=== PATIENT | male | born 1950 | race Caucasian/White ===

== ENCOUNTER 2017-09-24 11:32 | Emergency (ER) | payer MEDICARE, BC ==
[2017-09-24] MEDS ORDERED: Sodium Chloride 0.9% 10 ML Syringe FLUSH PRN ×2 (11:40→12:01)
[2017-09-24] MEDS ORDERED: Heparin Sodium 5,000 Units/ML Vial IVPUSH ONE (11:42)
[2017-09-24] MEDS ORDERED: Heparin Sodium/D5W 25,000 UNITS/500 ML BAG IV SCH ×2 (11:45→12:15)
[2017-09-24] MEDS ORDERED: Iopamidol 755 Mg/ML 100 ML Bottle IVPUSH ONE (12:01)
--- NOTE | 2017-09-24 12:07 | EDM.PDOC ---
ED HPI GENERAL MEDICAL PROBLEM - General Chief Complaint: Chest Pain Stated Complaint: CHEST PAIN Time Seen by Provider: 09/24/17 11:40 Source of Information: Reports: Patient History Limitations: Reports: No Limitations - History of Present Illness INITIAL COMMENTS - FREE TEXT/NARRATIVE: The patient presents with chest pain and shortness of breath. This all started about 1 month ago. He had a few episodes of chest pain that went away. He then developed some shortness of breath about 2 weeks ago. It was worse with exertion and he stopped walking with his . He developed some chest pain while riding his stationary bike on Saturday. Since then he has had a couple episodes of chest pain with exertion. He saw his doctor Dr Colon and he did an EKG that showed a NSR with some flipped T waves in the inferior leads. Dr Schuyler peter also did a troponin and that was elevated at 0.206. He had the patient take another dose of his aspirin and come to the ER. The patient has a history of a PE a few years ago after an international flight. He was on blood thinners for awhile and he is off of them now. He has edema in the right leg since then. There has been no change with that. He has no fever, chills, cough , congestion, runny nose, abdominal pain, nausea or vomiting. He has no history of [place]. His parents both had MIs. He has HTN and hypercholesterolemia. He quit smoking cigarettes years ago. He smokes an occasional cigar. Onset: Gradual Duration: Day(s): Location: Reports: Chest Quality: Reports: Pressure Severity: Moderate Improves with: Reports: Rest Worsens with: Reports: Movement Context: Reports: Activity (This episode started on Saturday) Treatments PORTFOLIO MANAGER: Reports: Aspirin - Related Data Allergies Allergy/AdvReac Type Severity Reaction Status Date / Time No Known Allergies Allergy Verified 09/24/17 11:48 Home Meds: Home Meds Aspirin [Adult Low Dose Aspirin EC] 81 mg PO DAILY 09/24/17 [History] Losartan [Cozaar] 50 mg PO DAILY 09/24/17 [History] Multivitamin [One Daily Multivitamin] 1 tab PO DAILY 09/24/17 [History] Omeprazole 20 mg PO ASDIRECTED 09/24/17 [History] Timolol [Betimol] 1 drop EYEBOTH DAILY 09/24/17 [History] Vitamin B Complex & Vit C No.4 [Super B Complex] 150 mg PO DAILY 09/24/17 [ History] atorvaSTATin [Lipitor] 40 mg PO DAILY 09/24/17 [History] Past Medical History Cardiovascular History: Reports: High Cholesterol, Hypertension Respiratory History: Reports: None Other Gastrointestinal History: hernia surgery Musculoskeletal History: Reports: None Neurological History: Reports: None Endocrine/Metabolic History: Reports: None Social & Family History - Family History Family Medical History: Noncontributory - Tobacco Use Smoking Status *Q: Former Smoker Used Tobacco, but Quit: Yes Month Tobacco Last Used: 1 ED ROS GENERAL - Review of Systems Review Of Systems: See Below Constitutional: Reports: No Symptoms HEENT: Reports: No Symptoms Respiratory: Reports: Shortness of Breath Cardiovascular: Reports: Chest Pain Endocrine: Reports: No Symptoms GI/Abdominal: Reports: No Symptoms : Reports: No Symptoms Musculoskeletal: Reports: No Symptoms ED EXAM, GENERAL - Physical Exam Exam: See Below Exam Limited By: No Limitations General Appearance: Alert, No Apparent Distress Ears: Normal External Exam Nose: Normal Inspection Head: Atraumatic, Normocephalic Neck: Normal Inspection Respiratory/Chest: No Respiratory Distress, Lungs Clear, Normal Breath Sounds Cardiovascular: Regular Rate, Rhythm, No Edema, No Murmur GI/Abdominal: Soft, Non-Tender, No Organomegaly, No Mass Back Exam: Normal Inspection Extremities: Normal Inspection EKG INTERPRETATION EKG Date: 09/24/17 Time: 12:11 Rhythm: NSR Rate (Beats/Min): 82 [place]: Normal P-Wave: Present QRS: Normal ST-T: Normal QT: Normal Course - Vital Signs Last Recorded V/S: Last Vital Signs Temp 98.5 F 09/24/17 11:46 Pulse 92 09/24/17 11:46 Resp 18 09/24/17 11:46 BP 170/85 H 09/24/17 11:46 Pulse Ox 99 09/24/17 11:46 - Orders/Labs/Meds Orders: Active Orders 24 hr Category Date Time Status Cardiac Monitoring [RC] . DIRECTED Care 09/24/17 11:40 Active EKG Documentation Completion [RC] STAT Care 09/24/17 11:42 Active Oxygen Therapy [RC] PRN Care 09/24/17 11:40 Active Peripheral IV Care [RC] . DIRECTED Care 09/24/17 11:42 Active CBC W/O DIFF,HEMOGRAM [HEME] MOTH@0700 Lab 09/26/17 07:00 Ordered CBC W/O DIFF,HEMOGRAM [HEME] MOTH@0700 Lab 09/30/17 07:00 Ordered CBC W/O DIFF,HEMOGRAM [HEME] MOTH@0700 Lab 10/03/17 07:00 Ordered CBC W/O DIFF,HEMOGRAM [HEME] MOTH@0700 Lab 10/07/17 07:00 Ordered CBC W/O DIFF,HEMOGRAM [HEME] MOTH@0700 Lab 10/10/17 07:00 Ordered CBC W/O DIFF,HEMOGRAM [HEME] MOTH@0700 Lab 10/14/17 07:00 Ordered Heparin Sodium/D5W [Heparin 25,000 Units in D5W 500 ML] Med 09/24/17 12:15 Active 25,000 units in 500 ml IV TITRATE Sodium Chloride 0.9% [Normal Saline] 100 ml Med 09/24/17 12:15 Active IV ASDIRECTED Sodium Chloride 0.9% [Saline Flush] Med 09/24/17 11:40 Active 10 ml FLUSH ASDIRECTED PRN Sodium Chloride 0.9% [Saline Flush] Med 09/24/17 12:01 Active 10 ml FLUSH ONETIME PRN Peripheral IV Insertion Adult [OM.PC] Stat Oth 09/24/17 11:40 Ordered Medication Orders Sodium Chloride (Normal Saline) 100 mls @ 80 mls/hr IV ASDIRECTED RIKY Last Admin: 09/24/17 12:05 Dose: 80 mls/hr Heparin Sodium/Dextrose (Heparin 25,000 Units In D5w 500 Ml) 25,000 units in 500 mls @ 19.14 mls/hr IV TITRATE RIKY; 10 UNITS/KG/HR PRN Reason: Protocol Last Admin: 09/24/17 12:29 Dose: 19.14 mls/hr Sodium Chloride (Saline Flush) 10 ml FLUSH ASDIRECTED PRN PRN Reason: Keep Vein Open Last Admin: 09/24/17 11:53 Dose: 10 ml Sodium Chloride (Saline Flush) 10 ml FLUSH ONETIME PRN PRN Reason: IV FLUSH Last Admin: 09/24/17 12:05 Dose: 10 ml Labs: Laboratory Tests 09/24/17 09/24/17 09/24/17 Range/Units 11:45 11:45 11:45 WBC 10.66 H (4.23-9.07) K/mm3 RBC 5.08 (4.63-6.08) M/mm3 Hgb 15.6 (13.7-17.5) gm/L Hct 46.2 (40.1-51.0) % MCV 90.9 (79.0-92.2) fl MCH 30.7 (25.7-32.2) pg MCHC 33.8 (32.2-35.5) g/dl RDW Std Deviation 45.4 H (35.1-43.9) fL Plt Count 239 (163-337) K/mm3 MPV 10.8 (9.4-12.3) fl Neut % (Auto) 62.1 (34.0-67.9) % Lymph % (Auto) 26.2 (21.8-53.1) % [place] % (Auto) 9.8 (5.3-12.2) % Eos % (Auto) 1.1 (0.8-7.0) Baso % (Auto) 0.6 (0.1-1.2) % Neut # (Auto) 6.62 H (1.78-5.38) K/mm3 Lymph # (Auto) 2.79 (1.32-3.57) K/mm3 [place] # (Auto) 1.05 H (0.30-0.82) K/mm3 Eos # (Auto) 0.12 (0.04-0.54) K/mm3 Baso # (Auto) 0.06 (0.01-0.08) K/mm3 D-Dimer, Quantitative 0.43 (0.19-0.59) mg/L Troponin I 0.172 H* (0.00-0.056) ng/mL Meds: Medications Generic Name Dose Route Start Last Admin Trade Name Freq PRN Reason Stop Dose Admin Sodium Chloride 100 mls @ 80 mls/hr 09/24/17 12:15 09/24/17 12:05 Normal Saline IV 80 mls/hr ASDIRECTED RIKY Administration Heparin Sodium/Dextrose 25,000 units in 500 mls @ 19.14 mls/hr 09/24/17 12:15 09/24/17 12:29 Heparin 25,000 Units In D5w 500 Ml IV 19.14 mls/hr TITRATE RIKY Administration Protocol 10 UNITS/KG/HR Sodium Chloride 10 ml 09/24/17 11:40 09/24/17 11:53 Saline Flush FLUSH 10 ml ASDIRECTED PRN Administration Keep Vein Open Sodium Chloride 10 ml 09/24/17 12:01 09/24/17 12:05 Saline Flush FLUSH 10 ml ONETIME PRN Administration IV FLUSH Discontinued Medications Generic Name Dose Route Start Last Admin Trade Name [place] PRN Reason Stop Dose Admin Heparin Sodium (Porcine) 5,000 units 09/24/17 11:42 09/24/17 11:53 Heparin Sodium IVPUSH 09/24/17 11:43 5,000 units ONETIME ONE Administration Heparin Sodium/Dextrose 25,000 units in 500 mls @ 0 mls/hr 09/24/17 11:45 Heparin 25,000 Units In D5w 500 Ml IV TITRATE RIKY Protocol 10 UNITS/KG/HR Heparin Sodium/Dextrose Confirm 09/24/17 12:23 09/24/17 12:33 Heparin 25,000 Units In D5w 500 Ml Administered 09/24/17 12:24 Not Given Dose 500 mls @ as directed .ROUTE .STK-MED ONE Iopamidol 100 ml 09/24/17 12:01 09/24/17 12:04 Isovue-370 (76%) IVPUSH 09/24/17 12:02 65 ml ONETIME ONE Administration - Re-Assessments/Exams Free Text/Narrative Re-Assessment/Exam: 09/24/17 12:08 I ordered an IV saline lock. He took a double dose of aspirin. I also ordered a CT of his chest to look for CT. I did a repeat EKG and it shows a flipped T- wave in the inferior leads. There is no change from the EKG done at Dr Colon' s office. I will do a repeat troponin. 09/24/17 13:[address] showed no findings of PE. Moderately prominent coronary artery calcification. He has no chest pain now. His troponin has decreased slightly to 0.172. I feel he had a nonSTEMI possibly on Saturday. I feel he needs to go to [place] to see cardiology. I called [facility] in [place] and talked with the hospitalist Dr Hoovestol and he accepted the patient. He did recommend a beta tala. I gave him metoprolol 50mg by mouth. Departure - Departure Time of Disposition: 13:20 Disposition: DC/Tfer to Acute Hospital 02 Reason for Transfer *Q: Other Condition: Serious Clinical Impression: Non-STEMI (non-ST elevated myocardial infarction) Referrals: Ezequiel Mccauley MD [Primary Care Provider] - Forms: ED Department Discharge - My Orders Last 24 Hours: My Active Orders 09/24/17 11:40 Cardiac Monitoring [RC] . DIRECTED Oxygen Therapy [RC] PRN Sodium Chloride 0.9% [Saline Flush] 10 ml FLUSH ASDIRECTED PRN Peripheral IV Insertion Adult [OM.PC] Stat 09/24/17 11:42 EKG Documentation Completion [RC] STAT Peripheral IV Care [RC] . DIRECTED 09/24/17 12:01 Sodium Chloride 0.9% [Saline Flush] 10 ml FLUSH ONETIME PRN 09/24/17 12:15 Heparin Sodium/D5W [Heparin 25,000 Units in D5W 500 ML] 25,000 units in 500 ml IV TITRATE Sodium Chloride 0.9% [Normal Saline] 100 ml IV ASDIRECTED 09/26/17 07:00 CBC W/O DIFF,HEMOGRAM [HEME] MOTH@0700 09/30/17 07:00 CBC W/O DIFF,HEMOGRAM [HEME] MOTH@0700 10/03/17 07:00 CBC W/O DIFF,HEMOGRAM [HEME] MOTH@0700 10/07/17 07:00 CBC W/O DIFF,HEMOGRAM [HEME] MOTH@0700 10/10/17 07:00 CBC W/O DIFF,HEMOGRAM [HEME] MOTH@0700 10/14/17 07:00 CBC W/O DIFF,HEMOGRAM [HEME] MOTH@0700 - Assessment/Plan Last 24 Hours: My Active Orders 09/24/17 11:40 Cardiac Monitoring [RC] . DIRECTED Oxygen Therapy [RC] PRN Sodium Chloride 0.9% [Saline Flush] 10 ml FLUSH ASDIRECTED PRN Peripheral IV Insertion Adult [OM.PC] Stat 09/24/17 11:42 EKG Documentation Completion [RC] STAT Peripheral IV Care [RC] . DIRECTED 09/24/17 12:01 Sodium Chloride 0.9% [Saline Flush] 10 ml FLUSH ONETIME PRN 09/24/17 12:15 Heparin Sodium/D5W [Heparin 25,000 Units in D5W 500 ML] 25,000 units in 500 ml IV TITRATE Sodium Chloride 0.9% [Normal Saline] 100 ml IV ASDIRECTED 09/26/17 07:00 CBC W/O DIFF,HEMOGRAM [HEME] MOTH@69909/30/17 07:00 CBC W/O DIFF,HEMOGRAM [HEME] MOTH@69910/03/17 07:00 CBC W/O DIFF,HEMOGRAM [HEME] MOTH@69910/07/17 07:00 CBC W/O DIFF,HEMOGRAM [HEME] MOTH@69910/10/17 07:00 CBC W/O DIFF,HEMOGRAM [HEME] MOTH@69910/14/17 07:00 CBC W/O DIFF,HEMOGRAM [HEME] MOTH@699
[2017-09-24] MEDS ORDERED: Sodium Chloride 0.9% 100 ML IV SCH (12:15)
[2017-09-24] MEDS ORDERED: Heparin Sodium/D5W 500 ML ONE (12:23)
--- NOTE | 2017-09-24 13:05 | CT ---
CT chest Technique: Multiple axial sections through the chest were obtained. Intravenous contrast was utilized. Study has been performed as a pulmonary angiogram protocol. Comparison: No previous chest imaging. Findings: Pulmonary arteries are well-opacified. No filling defects are seen to indicate pulmonary embolism. Moderately severe coronary artery calcification is seen. Mild atherosclerotic calcifications seen within the thoracic aorta. Mediastinum and hilar regions show no adenopathy or mass. Small portion of the visualized upper abdominal structures appear within normal limits. Slight linear densities noted within the right middle lobe and right lung base compatible with combination of atelectasis and scarring. Lungs otherwise are clear. Bone window settings were reviewed which show scattered degenerative spurring throughout the spine. Impression: 1. No findings of pulmonary embolism. 2. Moderately prominent coronary artery calcification. 3. Other incidental findings as described above. Diagnostic code #3
[2017-09-24] MEDS ORDERED: Metoprolol Tartrate 50 MG Tab PO ONE (13:15)
== END 2017-09-24 14:27 ==
LOC: JD.ED 11:32
DX: I21.4 Non-ST elevation (NSTEMI) myocardial infarction (principal); I10 Essential (primary) hypertension; Z79.82 Long term (current) use of aspirin; Z79.899 Other long term (current) drug therapy; Z87.891 Personal history of nicotine dependence
CPT/HCPCS: 36415; 71275; 84484; 85025; 85379; 93005; 96365; 96366; 96376; 99285; A9270; J1644; J7030; J7050; Q9967; 93010

== ENCOUNTER 2017-10-16 17:16 | Emergency (ER) | payer MEDICARE, BC ==
--- NOTE | 2017-10-16 18:43 | EDM.PDOC ---
ED HPI GENERAL MEDICAL PROBLEM - General Chief Complaint: Fever Stated Complaint: FEVER (BYPASS SURGERY 2 WKS AGO) Time Seen by Provider: 10/16/17 17:25 Source of Information: Reports: Patient, Family () History Limitations: Reports: No Limitations - History of Present Illness INITIAL COMMENTS - FREE TEXT/NARRATIVE: Medical records indicate that the patient was seen in this emergency department by Dr. Ruth on 09/24/2017 for exertional chest pain for one month and dyspnea for 2 weeks. He was found to have a mildly elevated troponin, diagnosed with a non-STEMI, and transferred to [facility]. He states that he underwent a four-vessel bypass on 10/01/[address] Luciano. The masood were removed by Dr. Hayward yesterday, 10/15/2017. The patient's states that the patient has had chills on and off ever since his bypass. He developed a dry cough yesterday. Today she noticed that his face looked red. She checked his temperature with an oral mercury thermometer and found it to be elevated at 101.6. Here in the ED, the patient's temperature is found to be 99.3. The patient denies URI symptoms, such as nasal congestion or drainage. No recent nausea, vomiting, constipation, diarrhea, or urinary symptoms. - Related Data Allergies Allergy/AdvReac Type Severity Reaction Status Date / Time No Known Allergies Allergy Verified 09/24/17 11:48 Home Meds: Home Meds Aspirin [Adult Low Dose Aspirin EC] 81 mg PO DAILY 09/24/17 [History] Multivitamin [One Daily Multivitamin] 1 tab PO DAILY 09/24/17 [History] Omeprazole 20 mg PO ASDIRECTED 09/24/17 [History] Timolol [Betimol] 1 drop EYEBOTH DAILY 09/24/17 [History] Vitamin B Complex & Vit C No.4 [Super B Complex] 150 mg PO DAILY 09/24/17 [ History] atorvaSTATin [Lipitor] 40 mg PO DAILY 09/24/17 [History] Clopidogrel [Plavix] 75 mg PO DAILY 10/16/17 [History] Diltiazem HCl [Diltiazem 24Hr Cd] 240 mg PO DAILY 10/16/17 [History] Levofloxacin [Levaquin] 1 tab PO QPM #4 tablet 10/16/17 [Rx] Metoprolol Tartrate 25 mg PO BID 10/16/17 [History] Past Medical History HEENT History: Reports: Impaired Vision Cardiovascular History: Reports: Blood Clots/VTE/DVT, Bypass, High Cholesterol, Hypertension Respiratory History: Reports: PE Gastrointestinal History: Reports: GERD, Other (See Below) Other Gastrointestinal History: hernia surgery Musculoskeletal History: Reports: None Neurological History: Reports: None Endocrine/Metabolic History: Reports: None - Past Surgical History HEENT Surgical History: Reports: None GI Surgical History: Reports: Hernia, Inguinal Social & Family History - Family History Family Medical History: Noncontributory - Tobacco Use Smoking Status *Q: Never Smoker Used Tobacco, but Quit: Yes Month Tobacco Last Used: 1 Second Hand Smoke Exposure: No - Caffeine Use Caffeine Use: Reports: Coffee - Recreational Drug Use Recreational Drug Use: No ED ROS GENERAL - Review of Systems Review Of Systems: ROS reveals no pertinent complaints other than HPI. ED EXAM, GENERAL - Physical Exam Exam: See Below Exam Limited By: No Limitations General Appearance: Alert, WD/WN, No Apparent Distress Eye Exam: Bilateral Eye: Normal Inspection Ears: Normal External Exam, Hearing Grossly Normal Nose: Normal Inspection, No Blood Throat/Mouth: Normal Inspection, Normal Lips, Normal Voice, No Airway Compromise Head: Atraumatic, Normocephalic Neck: Normal Inspection, Full Range of Motion Respiratory/Chest: No Respiratory Distress, No Accessory Muscle Use, Crackles ( Bibasilar only.), Other (Sternotomy wound appears to be clean, dry, and intact, without suggestion of an infection). No: Wheezing, Prolonged Expiration Cardiovascular: Normal Peripheral Pulses, Regular Rate, Rhythm, No Gallop, No JVD, No Murmur, No Rub Peripheral Pulses: 4+: Radial (L), Radial (R) GI/Abdominal: Normal Bowel Sounds, Soft, Non-Tender, No Organomegaly, No Distention, No Abnormal Bruit, No Mass (Male) Exam: Deferred Rectal (Males) Exam: Deferred Back Exam: Normal Inspection, Full Range of Motion, NT Extremities: Normal Inspection, Normal Range of Motion, Normal Capillary Refill , Other (BLE compression stockings on) Neurological: Alert, Oriented, Normal Cognition, No Motor/Sensory Deficits Psychiatric: Normal Affect Skin Exam: Warm, Dry, Intact, Normal Color, No Rash Course - Vital Signs Last Recorded V/S: Last Vital Signs Temp 37.7 C 10/16/17 18:54 Pulse 81 10/16/17 17:26 Resp 18 10/16/17 17:26 BP 138/63 10/16/17 17:26 Pulse Ox 96 10/16/17 17:26 - Orders/Labs/Meds Orders: Active Orders 24 hr Category Date Time Status Incentive Spirometry [RT Incentive Spirometry] [RC] Care 10/16/17 18:37 Active ASDIRECTED Chest 2V [CR] Stat Exams 10/16/17 17:52 Taken CULTURE BLOOD [BC] Stat Lab 10/16/17 18:10 Received CULTURE BLOOD [BC] Stat Lab 10/16/17 18:20 Received Blood Culture x2 Reflex Set [OM.PC] Stat Oth 10/16/17 17:52 Ordered Labs: Laboratory Tests 10/16/17 10/16/17 Range/Units 18:10 18:10 WBC 15.19 H (4.23-9.07) K/mm3 RBC 3.30 L (4.63-6.08) M/mm3 Hgb 9.7 L (13.7-17.5) gm/L Hct 30.5 L (40.1-51.0) % MCV 92.4 H (79.0-92.2) fl MCH 29.4 (25.7-32.2) pg MCHC 31.8 L (32.2-35.5) g/dl RDW Std Deviation 45.8 H (35.1-43.9) fL Plt Count 502 H (163-337) K/mm3 MPV 9.1 L (9.4-12.3) fl Neutrophils % (Manual) 73 H (40-60) % Band Neutrophils % 0 (0-10) % Lymphocytes % (Manual) 13 L (20-40) % Atypical Lymphs % 1 % Monocytes % (Manual) 13 H (2-10) % Eosinophils % (Manual) 0 L (0.8-7.0) % Basophils % (Manual) 0 L (0.2-1.2) Platelet Estimate Increased Plt Morphology Comment Normal Poikilocytosis 1+ slight Anisocytosis 1+ slight Microcytosis 1+ slight Macrocytosis 1+ slight RBC Morph Comment Abnormal Sodium 137 (136-145) mEq/L Potassium 3.7 (3.5-5.1) mEq/L Chloride 102 (98-107) mEq/L Carbon Dioxide 24 (21-32) mEq/L Anion Gap 14.7 (5-15) BUN 16 (7-18) mg/dL Creatinine 1.0 (0.7-1.3) mg/dL Est Cr Clr Drug Dosing 74.01 mL/min Estimated GFR (MDRD) > 60 (>60) mL/min BUN/Creatinine Ratio 16.0 (14-18) Glucose 110 (80-115) mg/dL Calcium 9.1 (8.5-10.1) mg/dL Total Bilirubin 0.6 (0.2-1.0) mg/dL AST 22 (15-37) U/L ALT 35 (16-63) U/L Alkaline Phosphatase 82 (46-116) U/L Total Protein 7.0 (6.4-8.2) g/dl Albumin 2.8 L (3.4-5.0) g/dl Globulin 4.2 gm/dL Albumin/Globulin Ratio 0.7 L (1-2) - Re-Assessments/Exams Free Text/Narrative Re-Assessment/Exam: 10/16/17 18:01 Two-view chest radiograph reviewed. Poor inspiratory effort. Cardiac silhouette is within normal limits. No pulmonary vascular congestion. Small bilateral pleural effusions. Infiltrate versus atelectasis at the right base. No pneumothorax. The right hemidiaphragm appears to be elevated. Sternotomy wires noted. Formal read per the Radiologist pending. 10/16/17 19:14 I asked the respiratory therapist to bring an incentive spirometer to the patient, and I watched him use it. For the most part, he uses the incentive spirometer properly, although he does inhale a bit too hard in an effort to bring the main bubble up. I explained that he wants to keep the small bubble between air O's as long as possible. He was able to do this quite well, as well. 10/16/17 19:29 Test results discussed with the patient and his . While the patient has 0% bandemia, he does have an elevated WBC count of 15.19 and an infiltrate versus atelectasis at the right base. I believe it would be prudent to treat the patient with a five-day course of Levaquin. As he is oxygenating well, I do not see an indication for admission to the hospital. Departure - Departure Time of Disposition: 19:30 Disposition: Home, Self-Care 01 Condition: Good Clinical Impression: Fever, Cough - Discharge Information Referrals: Ezequiel Mccauley MD [Primary Care Provider] - Forms: ED Department Discharge Additional Instructions: You were seen in the emergency room for chills, cough, and a fever. Workup in the ER included blood work, 2 blood cultures, an influenza swab, and a chest x-ray. For the most part, your workup was unremarkable. You have a mildly elevated white blood cell count, but no "left shift" suggesting a bacterial infection. Your chest x-ray shows either some collapsed lung at the right base, versus an infiltrate that could mean pneumonia. To be on the safe side, you have been started on the antibiotic Levaquin. Take one tablet each evening, starting tomorrow, , 10/17/2017. Finish the entire prescription unless told otherwise by Dr. Hayward. Continue to use your incentive spirometer as instructed. We recommend that you follow-up with Dr. Hayward this week. If any other problems, please do not hesitate to return to the ER. - My Orders Last 24 Hours: My Active Orders 10/16/17 17:52 Chest 2V [CR] Stat Blood Culture x2 Reflex Set [OM.PC] Stat 10/16/17 18:10 CULTURE BLOOD [BC] Stat 10/16/17 18:20 CULTURE BLOOD [BC] Stat 10/16/17 18:37 Incentive Spirometry [RT Incentive Spirometry] [RC] ASDIRECTED - Assessment/Plan Last 24 Hours: My Active Orders 10/16/17 17:52 Chest 2V [CR] Stat Blood Culture x2 Reflex Set [OM.PC] Stat 10/16/17 18:10 CULTURE BLOOD [BC] Stat 10/16/17 18:20 CULTURE BLOOD [BC] Stat 10/16/17 18:37 Incentive Spirometry [RT Incentive Spirometry] [RC] ASDIRECTED
[2017-10-16] MEDS ORDERED: Levofloxacin 750 MG Tab PO STA (19:34)
--- NOTE | 2017-10-17 12:28 | CR ---
Chest: Two views of the chest were obtained. Comparison: No prior chest x-ray, previous chest CT dated 09/24/17 is available. Heart size is normal. Mild tortuosity of the thoracic aorta is seen. Right hemidiaphragm is elevated. Pleural thickening is seen posteriorly and laterally within the costophrenic angle which is believed to be chronic. No acute parenchymal densities are appreciated. Sternotomy is noted for CABG. Degenerative spurring is noted within the spine. Impression: 1. Findings within the right base which are felt to be chronic. Previous sternotomy is noted. 2. Nothing acute is appreciated on two-view chest x-ray. Diagnostic code #2 MTDD
== END 2017-10-16 19:49 | disposition home or self-care (01) ==
LOC: JD.ED 17:16
DX: R50.9 Fever, unspecified (principal); R05 Cough; E78.00 Pure hypercholesterolemia, unspecified; I10 Essential (primary) hypertension; Z79.899 Other long term (current) drug therapy; Z79.82 Long term (current) use of aspirin
CPT/HCPCS: 36415; 71020; 80053; 85025; 87040; 87804; 99284; A9270; 99283

== ENCOUNTER 2020-10-09 08:14 | Inpatient (IN) | payer MEDICARE, BC ==
--- NOTE | 2020-10-09 08:48 | EDM.PDOC ---
ED HPI GENERAL MEDICAL PROBLEM - General Chief Complaint: Lower Extremity Injury/Pain Stated Complaint: RT HIP INJURY Time Seen by Provider: 10/09/20 08:25 Source of Information: Reports: Patient History Limitations: Reports: No Limitations - History of Present Illness INITIAL COMMENTS - FREE TEXT/NARRATIVE: The patient presents with left hip pain. The patient was walking into [employer] and he slipped on some ice and fell and landed on his left hip on a curb. He did not hit his head or hurt his neck. He has no LOC. He has no chest pain or abdominal pain. When he is just sitting or laying down he has very little pain. If he puts weight on his hip, he has 6/10 pain. Onset: Sudden Duration: Hour(s): Location: Reports: Lower Extremity, Left (hip) Quality: Reports: Sharp Severity: Moderate Improves with: Reports: Immobilization Worsens with: Reports: Movement Context: Reports: Trauma (Slipped and fell and landed on a curb) Associated Symptoms: Reports: No Other Symptoms Left Hip Pain Score (Numeric/FACES): 6 - Related Data Allergies Allergy/AdvReac Type Severity Reaction Status Date / Time No Known Allergies Allergy Verified 12/27/17 09:10 Home Meds: Home Meds Aspirin [Adult Low Dose Aspirin EC] 81 mg PO DAILY 09/24/17 [History] Multivitamin [One Daily Multivitamin] 1 tab PO DAILY 09/24/17 [History] Omeprazole 20 mg PO ASDIRECTED 09/24/17 [History] Timolol [Betimol] 1 drop EYEBOTH DAILY 09/24/17 [History] Vitamin B Complex Vit C No.4 [Super B Complex] 150 mg PO DAILY 09/24/17 [History] atorvaSTATin [Lipitor] 40 mg PO DAILY 09/24/17 [History] Clopidogrel [Plavix] 75 mg PO DAILY 10/16/17 [History] Diltiazem HCl [Diltiazem 24Hr Cd] 240 mg PO DAILY 10/16/17 [History] Metoprolol Tartrate 25 mg PO BID 10/16/17 [History] Past Medical History HEENT History: Reports: Impaired Vision Cardiovascular History: Reports: Blood Clots/VTE/DVT, Bypass, High Cholesterol, Hypertension Respiratory History: Reports: PE Gastrointestinal History: Reports: GERD, Other (See Below) Other Gastrointestinal History: hernia surgery Musculoskeletal History: Reports: None Neurological History: Reports: None Endocrine/Metabolic History: Reports: None - Past Surgical History HEENT Surgical History: Reports: None GI Surgical History: Reports: Hernia, Inguinal Social & Family History - Family History Family Medical History: No Pertinent Family History - Caffeine Use Caffeine Use: Reports: Coffee Review of Systems - Review of Systems Review Of Systems: See Below Constitutional: Reports: No Symptoms Eyes: Reports: No Symptoms Ears: Reports: No Symptoms Nose: Reports: No Symptoms Mouth/Throat: Reports: No Symptoms Respiratory: Reports: No Symptoms Cardiovascular: Reports: No Symptoms GI/Abdominal: Reports: No Symptoms Genitourinary: Reports: No Symptoms Musculoskeletal: Reports: Other (Left hip pain) ED EXAM, GENERAL - Physical Exam Exam: See Below Exam Limited By: No Limitations General Appearance: Alert, No Apparent Distress Ears: Normal External Exam Nose: Normal Inspection Head: Atraumatic, Normocephalic Neck: Normal Inspection, Supple, Non-Tender Respiratory/Chest: No Respiratory Distress, Lungs Clear, Normal Breath Sounds Cardiovascular: Regular Rate, Rhythm, No Edema, No Murmur GI/Abdominal: Soft, Non-Tender, No Organomegaly, No Mass Back Exam: Normal Inspection Extremities: Other (Mild pain upon palpation to the left hip. Good sensation and pulses distally.) Course - Vital Signs Last Recorded V/S: Last Vital Signs Temp 97.9 F 10/09/20 08:24 Pulse 63 10/09/20 08:24 Resp 18 10/09/20 08:24 BP 166/80 H 10/09/20 08:24 Pulse Ox 100 10/09/20 08:24 - Orders/Labs/Meds Orders: Active Orders 24 hr Category Date Time Status Cardiac Monitoring [RC] . DIRECTED Care 10/09/20 09:26 Active EKG Documentation Completion [RC] STAT Care 10/09/20 09:26 Active Peripheral IV Care [RC] . DIRECTED Care 10/09/20 09:27 Active CBC WITH AUTO DIFF [HEME] Stat Lab 10/09/20 09:40 Results COMPREHENSIVE METABOLIC PN,CMP [CHEM] Stat Lab 10/09/20 09:40 Received CORONAVIRUS COVID-19 OG [MOLEC] Stat Lab 10/09/20 09:36 Received INR,PT,PROTHROMBIN TIME [COAG] Stat Lab 10/09/20 09:40 Received PTT,PARTIAL THROMBOPLSTIN TIME [COAG] Stat Lab 10/09/20 09:40 Received TROPONIN I [CHEM] Stat Lab 10/09/20 09:40 Received Sodium Chloride 0.9% [Saline Flush] Med 10/09/20 09:26 Active 10 ml FLUSH ASDIRECTED PRN Peripheral IV Insertion Adult [OM.PC] Stat Oth 10/09/20 09:26 Ordered Medication Orders Sodium Chloride (Saline Flush) 10 ml FLUSH ASDIRECTED PRN PRN Reason: Keep Vein Open Last Admin: 10/09/20 09:51 Dose: 10 ml Documented by: SANTOS Labs: Laboratory Tests 10/09/20 Range/Units 09:40 WBC 12.12 H (4.23-9.07) K/mm3 RBC 5.14 (4.63-6.08) M/mm3 Hgb 15.5 (13.7-17.5) gm/dl Hct 47.6 (40.1-51.0) % MCV 92.6 H (79.0-92.2) fl MCH 30.2 (25.7-32.2) pg MCHC 32.6 (32.2-35.5) g/dl RDW Std Deviation 45.6 H (35.1-43.9) fL Plt Count 240 (163-337) K/mm3 MPV 10.8 (9.4-12.3) fl Neut % (Auto) 74.5 H (34.0-67.9) % Lymph % (Auto) 14.8 L (21.8-53.1) % [place] % (Auto) 8.5 (5.3-12.2) % Eos % (Auto) 1.7 (0.8-7.0) Baso % (Auto) 0.3 (0.1-1.2) % Neut # (Auto) 9.03 H (1.78-5.38) K/mm3 Lymph # (Auto) 1.79 (1.32-3.57) K/mm3 [place] # (Auto) 1.03 H (0.30-0.82) K/mm3 Eos # (Auto) 0.21 (0.04-0.54) K/mm3 Baso # (Auto) 0.04 (0.01-0.08) K/mm3 Meds: Medications Generic Name Dose Route Start Last Admin Trade Name Clarkq PRN Reason Stop Dose Admin Sodium Chloride 10 ml 10/09/20 09:26 10/09/20 09:51 Saline Flush FLUSH 10 ml ASDIRECTED PRN Administration Keep Vein Open - Re-Assessments/Exams Free Text/Narrative Re-Assessment/Exam: 10/09/20 08:47 I ordered an x-ray of his left hip and pelvis. 10/09/20 10:06 The x-ray shows a left subcapital fracture that is mildly displaced. I ordered an EKG that shows nothing acute. I also ordered labs. I called Dr Son and Dr Abreu and Dr Abreu agreed to the admission with Dr Son on consult. Departure - Departure Time of Disposition: 10:10 Disposition: Admitted As Inpatient 66 Condition: Fair Clinical Impression: Fall Qualifiers: Encounter type: initial encounter Qualified Code(s): W19.XXXA - Unspecified fall, initial encounter Closed left hip fracture Qualifiers: Encounter type: initial encounter Qualified Code(s): S72.002A - Fracture of unspecified part of neck of left femur, initial encounter for closed fracture - Discharge Information Referrals: Ezequiel Abreu MD [Primary Care Provider] - Forms: ED Department Discharge Sepsis Event Note (ED) - Evaluation Sepsis Screening Result: No Definite Risk - Focused Exam Vital Signs: Vital Signs Temp Pulse Resp BP Pulse Ox 10/09/20 08:24 97.9 F 63 18 166/80 H 100 - My Orders Last 24 Hours: My Active Orders 10/09/20 09:26 Cardiac Monitoring [RC] . DIRECTED EKG Documentation Completion [RC] STAT Sodium Chloride 0.9% [Saline Flush] 10 ml FLUSH ASDIRECTED PRN Peripheral IV Insertion Adult [OM.PC] Stat 10/09/20 09:27 Peripheral IV Care [RC] . DIRECTED 10/09/20 09:36 CORONAVIRUS COVID-19 OG [MOLEC] Stat 10/09/20 09:40 CBC WITH AUTO DIFF [HEME] Stat COMPREHENSIVE METABOLIC PN,CMP [CHEM] Stat INR,PT,PROTHROMBIN TIME [COAG] Stat PTT,PARTIAL THROMBOPLSTIN TIME [COAG] Stat TROPONIN I [CHEM] Stat - Assessment/Plan Last 24 Hours: My Active Orders 10/09/20 09:26 Cardiac Monitoring [RC] . DIRECTED EKG Documentation Completion [RC] STAT Sodium Chloride 0.9% [Saline Flush] 10 ml FLUSH ASDIRECTED PRN Peripheral IV Insertion Adult [OM.PC] Stat 10/09/20 09:27 Peripheral IV Care [RC] . DIRECTED 10/09/20 09:36 CORONAVIRUS COVID-19 GO [MOLEC] Stat 10/09/20 09:40 CBC WITH AUTO DIFF [HEME] Stat COMPREHENSIVE METABOLIC PN,CMP [CHEM] Stat INR,PT,PROTHROMBIN TIME [COAG] Stat PTT,PARTIAL THROMBOPLSTIN TIME [COAG] Stat TROPONIN I [CHEM] Stat
--- NOTE | 2020-10-09 09:25 | CR ---
Pelvis and left hip: AP view of the pelvis was obtained as well as AP and crosstable lateral views of the left hip. Subcapital fracture is noted within the left hip. Minimal displacement is seen. Mild joint space narrowing is noted within both hips. Sacroiliac joints appear within normal limits. Slight vascular calcification is noted. Surgical clips are seen with the right groin. Impression: 1. Minimally displaced subcapital fracture of the left hip. 2. Other findings believed to be incidental as described above. Diagnostic code #3
[2020-10-09] MEDS ORDERED: Sodium Chloride 0.9% 10 ML Syringe FLUSH PRN (09:26)
[2020-10-09] MEDS ORDERED: Docusate Sodium 100 MG Cap PO PRN (12:01)
[2020-10-09] MEDS ORDERED: Ondansetron 4 MG/2 ML SDV IV PRN (12:01)
--- NOTE | 2020-10-09 12:09 | PCM.HP.2 ---
H&P History of Present Illness - General Date of Service: 10/09/20 Admit Problem/Dx: Admission Diagnosis/Problem Admission Diagnosis/Problem Hip fracture requiring operative repair Source of Information: Patient, Provider, RN, RN Notes Reviewed History Limitations: Reports: No Limitations - History of Present Illness Initial Comments - Free Text/Narative: This is a 70-year-old male who presented to ED on 10/09/2020 after a fall resulting in left hip pain. Patient reports he was walking [place] [employer] and slipped on the ice and fell, landing on his left hip. Denies any head neck or back pain and reports he did not hit his head. No loss of consciousness. Denies any chest or abdominal pain. Reports minimal pain while sitting or lying down but 6 out of 10 pain while weightbearing. In the ED temp is 97.9. Pulse 63. Blood pressure 166/80. Respirations 18. Pulse ox 100% on room air. Twelve-lead EKG is obtained showing a sinus rhythm at 66 bpm. 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 No acute changes or signs of ischemia. Labs are obtained. WBC is elevated at 12.12, which is likely due to stress reaction. Hemoglobin is 15.5. Hematocrit 47.6. Platelets are good at 240,000. Neutrophils are elevated at 74.5%. INR 0.93. Sodium 137. Potassium 3.8. Chloride 101. Carbon oxide 27. Anion gap 12.8. BUN is 17. Creatinine 1.2. GFR is 60. Glucose 110. Calcium 9.6. Bilirubin 0.4. AST is 24, ALT 32, alkaline phosphatase 78. Troponin is less than 0.017. Protein is high at 8.3. Albumin 4.1. SARS-CoV-2 RNA is negative. Hip x-rays obtained showing a minimally displaced subcapital fracture of the left hip and other incidental findings. Orthopedic surgeon, Dr. Son, is consulted through the ED. Patient is on Plavix and will likely require surgery on Saturday, which gives this time to wear off. He carries a history of DVT, PE, coronary bypass, GERD, HLD, hypertension. He reports prior constipation with opioids. His PCP is Dr. Hayward. His bulb assembler is Dr. Callahan. He is a full code. He is subsequently mid to the medical floor for planned surgical fixation of his left hip fracture. Left Hip Pain Score (Numeric/FACES): 6 - Related Data Allergies/Adverse Reactions: Allergies Allergy/AdvReac Type Severity Reaction Status Date / Time codeine AdvReac Other Verified 10/09/20 11:29 Home Medications: Home Meds Aspirin [Adult Low Dose Aspirin EC] 81 mg PO DAILY 09/24/17 [History] Multivitamin [One Daily Multivitamin] 1 tab PO DAILY 09/24/17 [History] Omeprazole 20 mg PO ASDIRECTED 09/24/17 [History] Vitamin B Complex Vit C No.4 [Super B Complex] 150 mg PO DAILY 09/24/17 [History] atorvaSTATin [Lipitor] 40 mg PO DAILY 09/24/17 [History] Clopidogrel [Plavix] 75 mg PO DAILY 10/16/17 [History] Diltiazem HCl [Diltiazem 24Hr Cd] 240 mg PO DAILY 10/16/17 [History] Metoprolol Tartrate 25 mg PO BID 10/16/17 [History] Acetaminophen [Tylenol Extra Strength] 500 mg PO BID 10/09/20 [History] Brimonidine Tartrate/Timolol [Combigan Eye Drops] 1 drop OP BID 10/09/20 [History] Past Medical History HEENT History: Reports: Impaired Vision Other HEENT History: wear glasses Cardiovascular History: Reports: Blood Clots/VTE/DVT, Bypass, High Cholesterol, Hypertension Respiratory History: Reports: PE, Other (See Below) Other Respiratory History: DVT in leg that traveled to lungs. Gastrointestinal History: Reports: GERD, Other (See Below) Other Gastrointestinal History: hernia surgery x2 Musculoskeletal History: Reports: None Neurological History: Reports: None Endocrine/Metabolic History: Reports: None - Infectious Disease History Infectious Disease History: Reports: Chicken Pox, Measles - Past Surgical History HEENT Surgical History: Reports: None Cardiovascular Surgical History: Reports: Coronary Artery Bypass GI Surgical History: Reports: Hernia, Inguinal Social & Family History - Family History Family Medical History: No Pertinent Family History - Tobacco Use Tobacco Use Status *Q: Former Tobacco User Used Tobacco, but Quit: Yes Month/Year Tobacco Last Used: 1994 - Caffeine Use Caffeine Use: Reports: Coffee, Soda - Recreational Drug Use Recreational Drug Use: No H&P Review of Systems - Review of Systems: Review Of Systems: See Below General: Reports: No Symptoms. Denies: Fever, Chills, Malaise, Weakness, Fatigue HEENT: Reports: No Symptoms. Denies: Headaches, Sore Throat Pulmonary: Reports: No Symptoms. Denies: Shortness of Breath, Wheezing, Pleuritic Chest Pain, Cough, Hemoptysis Cardiovascular: Reports: No Symptoms. Denies: Chest Pain, Palpitations, Dyspnea on Exertion, Edema Gastrointestinal: Reports: No Symptoms. Denies: Abdominal Pain, Constipation, Diarrhea, Nausea, Vomiting Genitourinary: Reports: No Symptoms. Denies: Pain Musculoskeletal: Reports: Joint Pain (left hip) Skin: Reports: No Symptoms. Denies: Cyanosis Psychiatric: Reports: No Symptoms. Denies: Confusion Neurological: Reports: Difficulty Walking, Gait Disturbance. Denies: Confusion, Headache, Numbness, Pre-Existing Deficit, Tingling, Weakness Hematologic/Lymphatic: Reports: No Symptoms Immunologic: Reports: No Symptoms Exam - Exam Exam: See Below - Vital Signs Vital Signs: Last Vital Signs Temp 97.9 F 10/09/20 08:24 Pulse 63 10/09/20 08:24 Resp 18 10/09/20 08:24 BP 166/80 H 10/09/20 08:24 Pulse Ox 100 10/09/20 08:24 Weight: 209 lb 1.6 oz - Exam Quality Assessment: DVT Prophylaxis. No: Supplemental Oxygen General: Alert, Oriented, Cooperative. No: Mild Distress HEENT: Conjunctiva Clear, EACs Clear, Mucosa Moist & [place] Neck: Supple, Trachea Midline Lungs: Clear to Auscultation, Normal Respiratory Effort Cardiovascular: Regular Rate, Regular Rhythm GI/Abdominal Exam: Normal Bowel Sounds, Soft, Non-Tender, No Distention (Male) Exam: Deferred Rectal (Males) Exam: Deferred Back Exam: Normal Inspection, Full Range of Motion Extremities: Normal Inspection, No Pedal Edema, Normal Capillary Refill, Leg Pain (Left hip ), Limited Range of Motion (2/2 pain ) Peripheral Pulses: 2+: Dorsalis Pedis (L), Dorsalis Pedis (R), 3+: Radial (L), Radial (R) Skin: Warm, Dry, Intact Neurological: Cranial Nerves Intact (Grossly ) Neuro Extensive - Mental Status: Alert, Oriented x3, Normal Mood/Affect - Patient Data Lab Results Last 24 hrs: Laboratory Results - last 24 hr 10/09/20 10/09/20 10/09/20 Range/Units 09:36 09:40 09:40 WBC 12.12 H (4.23-9.07) K/mm3 RBC 5.14 (4.63-6.08) M/mm3 Hgb 15.5 (13.7-17.5) gm/dl Hct 47.6 (40.1-51.0) % MCV 92.6 H (79.0-92.2) fl MCH 30.2 (25.7-32.2) pg MCHC 32.6 (32.2-35.5) g/dl RDW Std Deviation 45.6 H (35.1-43.9) fL Plt Count 240 (163-337) K/mm3 MPV 10.8 (9.4-12.3) fl Neut % (Auto) 74.5 H (34.0-67.9) % Lymph % (Auto) 14.8 L (21.8-53.1) % [place] % (Auto) 8.5 (5.3-12.2) % Eos % (Auto) 1.7 (0.8-7.0) Baso % (Auto) 0.3 (0.1-1.2) % Neut # (Auto) 9.03 H (1.78-5.38) K/mm3 Lymph # (Auto) 1.79 (1.32-3.57) K/mm3 [place] # (Auto) 1.03 H (0.30-0.82) K/mm3 Eos # (Auto) 0.21 (0.04-0.54) K/mm3 Baso # (Auto) 0.04 (0.01-0.08) K/mm3 Manual Slide Review Normal smear PT 10.0 (9.7-12.0) SECONDS INR 0.93 APTT 22.2 (21.7-31.4) SECONDS Sodium (136-145) mEq/L Potassium (3.5-5.1) mEq/L Chloride (98-107) mEq/L Carbon Dioxide (21-32) mEq/L Anion Gap (5-15) BUN (7-18) mg/dL Creatinine (0.7-1.3) mg/dL Est Cr Clr Drug Dosing mL/min Estimated GFR (MDRD) (>60) mL/min BUN/Creatinine Ratio (14-18) Glucose (80-115) mg/dL Calcium (8.5-10.1) mg/dL Total Bilirubin (0.2-1.0) mg/dL AST (15-37) U/L ALT (16-63) U/L Alkaline Phosphatase (46-116) U/L Troponin I (0.00-0.056) ng/mL Total Protein (6.4-8.2) g/dl Albumin (3.4-5.0) g/dl Globulin gm/dL Albumin/Globulin Ratio (1-2) SARS-CoV-2 RNA (OG) Negative (NEGATIVE) 10/09/20 Range/Units 09:40 WBC (4.23-9.07) K/mm3 RBC (4.63-6.08) M/mm3 Hgb (13.7-17.5) gm/dl Hct (40.1-51.0) % MCV (79.0-92.2) fl MCH (25.7-32.2) pg MCHC (32.2-35.5) g/dl RDW Std Deviation (35.1-43.9) fL Plt Count (163-337) K/mm3 MPV (9.4-12.3) fl Neut % (Auto) (34.0-67.9) % Lymph % (Auto) (21.8-53.1) % [place] % (Auto) (5.3-12.2) % Eos % (Auto) (0.8-7.0) Baso % (Auto) (0.1-1.2) % Neut # (Auto) (1.78-5.38) K/mm3 Lymph # (Auto) (1.32-3.57) K/mm3 [place] # (Auto) (0.30-0.82) K/mm3 Eos # (Auto) (0.04-0.54) K/mm3 Baso # (Auto) (0.01-0.08) K/mm3 Manual Slide Review PT (9.7-12.0) SECONDS INR APTT (21.7-31.4) SECONDS Sodium 137 (136-145) mEq/L Potassium 3.8 (3.5-5.1) mEq/L Chloride 101 (98-107) mEq/L Carbon Dioxide 27 (21-32) mEq/L Anion Gap 12.8 (5-15) BUN 17 (7-18) mg/dL Creatinine 1.2 (0.7-1.3) mg/dL Est Cr Clr Drug Dosing 59.14 mL/min Estimated GFR (MDRD) 60 (>60) mL/min BUN/Creatinine Ratio 14.2 (14-18) Glucose 110 (80-115) mg/dL Calcium 9.6 (8.5-10.1) mg/dL Total Bilirubin 0.4 (0.2-1.0) mg/dL AST 24 (15-37) U/L ALT 32 (16-63) U/L Alkaline Phosphatase 78 (46-116) U/L Troponin I < 0.017 (0.00-0.056) ng/mL Total Protein 8.3 H (6.4-8.2) g/dl Albumin 4.1 (3.4-5.0) g/dl Globulin 4.2 gm/dL Albumin/Globulin Ratio 1.0 (1-2) SARS-CoV-2 RNA (OG) (NEGATIVE) Result Diagrams: 10/09/20 09:40 10/09/20 09:40 Sepsis Event Note - Evaluation Sepsis Screening Result: No Definite Risk - Focused Exam Vital Signs: Vital Signs Temp Pulse Resp BP Pulse Ox 10/09/20 08:24 97.9 F 63 18 166/80 H 100 - Problem List (1) Closed left hip fracture SNOMED Code(s): 077280824 ICD Code: S72.002A - FRACTURE OF UNSP PART OF NECK OF LEFT FEMUR, INIT Status: Acute Priority: High Current Visit: Yes Qualifiers: Encounter type: initial encounter Qualified Code(s): S72.002A - Fracture of unspecified part of neck of left femur, initial encounter for closed fracture (2) Fall SNOMED Code(s): 8190417, 298319301 ICD Code: W19.XXXA - UNSPECIFIED FALL, INITIAL ENCOUNTER Status: Acute Priority: High Current Visit: Yes Qualifiers: Encounter type: initial encounter Qualified Code(s): W19.XXXA - Unspecified fall, initial encounter (3) Chronic anticoagulation SNOMED Code(s): 491482479 ICD Code: Z79.01 - HOME SPECIALIST (CURRENT) USE OF ANTICOAGULANTS Status: Chronic Priority: Medium Current Visit: Yes (4) History of heart bypass surgery SNOMED Code(s): 765599272 ICD Code: Z95.1 - PRESENCE OF AORTOCORONARY BYPASS GRAFT Status: Chronic Priority: Medium Current Visit: No (5) History of pulmonary embolism SNOMED Code(s): 288736118 ICD Code: Z86.711 - PERSONAL HISTORY OF PULMONARY EMBOLISM Status: Chronic Priority: Medium Current Visit: No (6) HTN (hypertension) SNOMED Code(s): 68191648 ICD Code: I10 - ESSENTIAL (PRIMARY) HYPERTENSION Status: Chronic Prio rity: Medium Current Visit: No Qualifiers: Hypertension type: unspecified Qualified Code(s): I10 - Essential (primary) hypertension (7) HLD (hyperlipidemia) SNOMED Code(s): 34615940 ICD Code: E78.5 - HYPERLIPIDEMIA, UNSPECIFIED Status: Chronic Priority: Low Current Visit: No Qualifiers: Hyperlipidemia type: unspecified Qualified Code(s): E78.5 - Hyperlipidemia, unspecified (8) GERD (gastroesophageal reflux disease) SNOMED Code(s): 050495958 ICD Code: K21.9 - GASTRO-ESOPHAGEAL REFLUX DISEASE WITHOUT ESOPHAGITIS Status: Chronic Priority: Low Current Visit: No Qualifiers: Esophagitis presence: esophagitis presence not specified Qualified Code(s): K21.9 - Gastro-esophageal reflux disease without esophagitis (9) History of DVT of lower extremity SNOMED Code(s): 940439008 ICD Code: Z86.718 - PERSONAL HISTORY OF OTHER VENOUS THROMBOSIS AND EMBOLISM Status: Acute Priority: High Current Visit: Yes Problem List Initiated/Reviewed/Updated: Yes Orders Last 24hrs: Active Orders 24 hr Category Date Time Status Admission Status [Patient Status] [ADT] Routine ADT 10/09/20 10:24 Active Cardiac Monitoring [RC] . DIRECTED Care 10/09/20 09:26 Active Sodium Chloride 0.9% [Saline Flush] Med 10/09/20 09:26 Active 10 ml FLUSH ASDIRECTED PRN Peripheral IV Insertion Adult [OM.PC] Stat Oth 10/09/20 09:26 Ordered Medication Orders Sodium Chloride (Saline Flush) 10 ml FLUSH ASDIRECTED PRN PRN Reason: Keep Vein Open Last Admin: 10/09/20 09:51 Dose: 10 ml Documented by: SANTOS Assessment/Plan Comment:: Assessment - Day of Admission - 10/09/2020: * 70yo male who slipped on the ice and fell landing on left hip resulting in hip fracture * Denies hitting head. Denies head, neck, back, chest, abdominal pain. Denies LOC. * Labs in ED grossly unremarkable * 12-lead EKG in ED shows sinus rhythm at 66 BPM with old anterior infarct * CXR obtained on floor shows nothing acute * History of DVT, PE, HLD, HTN, CABG, GERD, and reports constipation with opiates * Left hip X-ray shows minimally displaced subcaptial fracture to left hip * Patient reports pain controlled when lying down or sitting - painful when weightbearing * NSQIP risk calculator - grossly below average risk overall * COVID-19 screen negative Plan: Closed left hip fracture Fall Chronic anticoagulation History of heart bypass surgery History of pulmonary embolism History of DVT * Consult surgery - Dr. Son for surgical fixation * Hold plavix * PT/OT * IS * Type and screen * Daily labs * Consult CM/SW for discharge planning * Lovenox/SCDs for VTE prevention * Bedrest bedside commode * Tylenol for fever pain * [place] for more sever pain * Schedule Colace due to history of constipation with opiates HTN (hypertension) HLD (hyperlipidemia) GERD (gastroesophageal reflux disease) * Home medications as ordered PCP: Dr. Hayward Code status: Full Code DVT prophylaxis: Lovenox/SCDs GI prophylaxis: Home PPI Social: Patient lives independently at home with who is a former nurse Disposition: Patient admitted to [facility] for planned surgical fixation of left hip fracture. Will require delay in planning of surgery due to home Plavix. Anticipate LOS of 4-5 days. Prognosis: Good - Mortality Measure Prognosis:: Good
--- NOTE | 2020-10-09 12:33 | CR ---
Chest: Portable view of the chest was obtained. Comparison: Previous chest x-ray of 10/16/17. Heart size and mediastinum are within normal limits for portable technique. There is slight scarring seen within the right mid to lower lung. Lungs otherwise are clear. Prior sternotomy is noted. Bony structures are grossly intact for the patient's age. Impression: 1. Findings as noted above. 2. Nothing acute is appreciated. Diagnostic code #2
[2020-10-09] MEDS: Acetaminophen/HYDROcodone 325-5 MG Tab PO PRN ×2 (13:09→21:00)
[2020-10-09] MEDS: Acetaminophen 325 MG Tab PO PRN (16:46)
[2020-10-09] MEDS: Timolol Maleate 0.5% Ophth Soln 5 ML Bottle EYEBOTH SCH (20:59)
[2020-10-09] MEDS ORDERED: Brimonidine 0.2% Ophth Soln 15 ML Bottle EYEBOTH SCH (21:00)
[2020-10-09] MEDS: Metoprolol Tartrate 25 MG Tab PO SCH (21:00)
[2020-10-09] MEDS: Docusate Sodium 100 MG Cap PO SCH (21:00)
[2020-10-10] MEDS: Acetaminophen/HYDROcodone 325-5 MG Tab PO PRN ×5 (00:51→19:19)
[2020-10-10] MEDS ORDERED: Potassium Chloride 20 MEQ Tab.ER PO ONE (07:35)
[2020-10-10] MEDS ORDERED: Enoxaparin 40 MG/0.4 ML Syringe SUBCUT SCH (09:00)
[2020-10-10] MEDS: Multivitamins,Therapeutic Tab PO SCH (09:43)
[2020-10-10] MEDS: Rosuvastatin 10 MG Tab PO SCH (09:43)
[2020-10-10] MEDS: Metoprolol Tartrate 25 MG Tab PO SCH ×2 (09:44→20:34)
[2020-10-10] MEDS: Docusate Sodium 100 MG Cap PO SCH ×2 (09:44→20:34)
[2020-10-10] MEDS: Diltiazem 240 MG Cap.ER PO SCH (09:44)
[2020-10-10] MEDS: Timolol Maleate 0.5% Ophth Soln 5 ML Bottle EYEBOTH SCH ×2 (09:45→20:31)
[2020-10-10] MEDS: Brimonidine 0.2% Ophth Soln 5 ML Bottle EYEBOTH SCH ×2 (09:45→20:33)
--- NOTE | 2020-10-10 12:04 | PCM.PN ---
- General Info Date of Service: 10/10/20 Admission Dx/Problem (Free Text): Admission Diagnosis/Problem Admission Diagnosis/Problem Hip fracture requiring operative repair Subjective Update: Patient reports doing okay. He states he does have some discomfort to his right hip, however he is requesting pain medications every 4 hours. I have also encouraged him to increase his p.o. intake and the need for stool softener. Patient awaiting surgery on Saturday. Functional Status: Reports: Pain Controlled, Tolerating Diet, Urinating (urinal), Incentive Spirometry. Denies: Ambulating - Review of Systems General: Reports: No Symptoms HEENT: Reports: No Symptoms Pulmonary: Reports: No Symptoms Cardiovascular: Reports: No Symptoms Gastrointestinal: Reports: No Symptoms Genitourinary: Reports: No Symptoms Musculoskeletal: Reports: Other (left hip pain) Skin: Reports: No Symptoms Neurological: Reports: No Symptoms Psychiatric: Reports: No Symptoms - Patient Data Vitals - Most Recent: Last Vital Signs Temp 98.2 F 10/10/20 11:27 Pulse 61 10/10/20 11:27 Resp 18 10/10/20 11:27 BP 131/70 10/10/20 11:27 Pulse Ox 93 L 10/10/20 11:27 Weight - Most Recent: 206 lb 14.4 oz I&O - Last 24 Hours: Intake & Output 10/09/20 10/10/20 10/10/20 22:59 06:59 14:59 Intake Total 75 650 Output Total 350 Balance 75 300 Lab Results Last 24 Hours: Laboratory Results - last 24 hr 10/09/20 10/10/20 10/10/20 Range/Units 09:40 06:23 06:23 WBC 13.22 H (4.23-9.07) K/mm3 RBC 4.57 L (4.63-6.08) M/mm3 Hgb 14.1 (13.7-17.5) gm/dl Hct 42.2 (40.1-51.0) % MCV 92.3 H (79.0-92.2) fl MCH 30.9 (25.7-32.2) pg MCHC 33.4 (32.2-35.5) g/dl RDW Std Deviation 45.7 H (35.1-43.9) fL Plt Count 196 (163-337) K/mm3 MPV 10.7 (9.4-12.3) fl Neut % (Auto) 72.4 H (34.0-67.9) % Lymph % (Auto) 12.9 L (21.8-53.1) % [place] % (Auto) 11.0 (5.3-12.2) % Eos % (Auto) 3.3 (0.8-7.0) Baso % (Auto) 0.3 (0.1-1.2) % Neut # (Auto) 9.57 H (1.78-5.38) K/mm3 Lymph # (Auto) 1.71 (1.32-3.57) K/mm3 [place] # (Auto) 1.46 H (0.30-0.82) K/mm3 Eos # (Auto) 0.43 (0.04-0.54) K/mm3 Baso # (Auto) 0.04 (0.01-0.08) K/mm3 Sodium 137 (136-145) mEq/L Potassium 3.4 L (3.5-5.1) mEq/L Chloride 101 (98-107) mEq/L Carbon Dioxide 24 (21-32) mEq/L Anion Gap 15.4 H (5-15) BUN 19 H (7-18) mg/dL Creatinine 1.1 (0.7-1.3) mg/dL Est Cr Clr Drug Dosing 64.52 mL/min Estimated GFR (MDRD) > 60 (>60) mL/min BUN/Creatinine Ratio 17.3 (14-18) Glucose 129 H (80-115) mg/dL Calcium 9.0 (8.5-10.1) mg/dL Magnesium 2.1 (1.8-2.4) mg/dl Total Bilirubin 0.5 (0.2-1.0) mg/dL AST 21 (15-37) U/L ALT 25 (16-63) U/L Alkaline Phosphatase 56 (46-116) U/L Total Protein 6.9 (6.4-8.2) g/dl Albumin 3.2 L (3.4-5.0) g/dl Globulin 3.7 gm/dL Albumin/Globulin Ratio 0.9 L (1-2) Blood Type B POSITIVE Gel Antibody Screen Negative Med Orders - Current: Current Medications Acetaminophen (Tylenol) 650 mg PO Q4H PRN PRN Reason: Pain (Mild 1-3)/fever Last Admin: 10/09/20 16:46 Dose: 650 mg Documented by: Hydrocodone Bitart/Acetaminophen ([place] 325-5 Mg) 1 tab PO Q4H PRN PRN Reason: Pain (moderate 4-6) Last Admin: 10/10/20 09:43 Dose: 1 tab Documented by: Brimonidine Tartrate ([place]phagan 0.2% Ophth Soln) 0 ml EYEBOTH BID [facility] Last Admin: 10/10/20 09:45 Dose: 1 drop Documented by: Diltiazem HCl (Dilacor Xr) 240 mg PO DAILY [facility] Last Admin: 10/10/20 09:44 Dose: 240 mg Documented by: Docusate Sodium (Colace) 100 mg PO BID [facility] Last Admin: 10/10/20 09:44 Dose: 100 mg Documented by: Enoxaparin Sodium (Lovenox) 40 mg SUBCUT DAILY [facility] Last Admin: 10/10/20 09:43 Dose: 40 mg Documented by: Metoprolol Tartrate (Lopressor) 25 mg PO BID [facility] Last Admin: 10/10/20 09:44 Dose: 25 mg Documented by: Multivitamins (Thera) 1 each PO DAILY [facility] Last Admin: 10/10/20 09:43 Dose: 1 each Documented by: Ondansetron HCl (Zofran) 4 mg IV Q6H PRN PRN Reason: Nausea/Vomiting Pantoprazole Sodium (Protonix) 40 mg PO TuThSa@0900 [facility] Rosuvastatin Calcium (Crestor) 10 mg PO DAILY [facility] Last Admin: 10/10/20 09:43 Dose: 10 mg Documented by: Sodium Chloride (Saline Flush) 10 ml FLUSH ASDIRECTED PRN PRN Reason: Keep Vein Open Last Admin: 10/09/20 09:51 Dose: 10 ml Documented by: Timolol Maleate (Timoptic 0.5% Ophth Soln) 0 ml EYEBOTH BID [facility] Last Admin: 10/10/20 09:45 Dose: 1 drop Documented by: Discontinued Medications Brimonidine Tartrate (Brimonidine Tartrate 0.2% Ophth Soln) 0 ml EYEBOTH BID [facility] Last Admin: 10/09/20 22:47 Dose: Not Given Documented by: Docusate Sodium (Colace) 100 mg PO BID PRN PRN Reason: Constipation Potassium Chloride (Klor-Con M20) 40 meq PO ONETIME ONE Stop: 10/10/20 07:36 Last Admin: 10/10/20 09:44 Dose: 40 meq Documented by: - Exam Quality Assessment: DVT Prophylaxis (lovenox). No: Supplemental Oxygen General: Alert, Oriented, Cooperative, No Acute Distress HEENT: Pupils Equal, Pupils Reactive, Mucous Membr. Moist/[place] Neck: Supple, Trachea Midline. No: Lymphadenopathy Lungs: Clear to Auscultation, Normal Respiratory Effort Cardiovascular: Regular Rate, Regular Rhythm, No Murmurs GI/Abdominal Exam: Normal Bowel Sounds, Soft, Non-Tender, No Distention (Male) Exam: Deferred Back Exam: Normal Inspection, Full Range of Motion Extremities: Normal Inspection, Normal Range of Motion, Non-Tender, No Pedal Edema, Normal Capillary Refill, Limited Range of Motion (left lower extremity due to fracture) Peripheral Pulses: 2+: Radial (L), Radial (R) Skin: Warm, Dry, Intact Neurological: No New Focal Deficit Psy/Mental Status: Alert, Normal Affect, Normal Mood Sepsis Event Note - Evaluation Sepsis Screening Result: No Definite Risk - Focused Exam Vital Signs: Vital Signs Temp Pulse Resp BP Pulse Ox 10/10/20 11:27 98.2 F 61 18 131/70 93 L 10/10/20 09:44 72 149/95 H 10/10/20 09:40 72 149/95 H 98 10/10/20 07:21 98.2 F 66 18 137/83 93 L 10/10/20 05:34 99.1 F 73 16 120/69 95 10/10/20 00:51 98.1 F 64 16 134/75 92 L - Problem List & Annotations (1) Closed left hip fracture SNOMED Code(s): 716602683 Code(s): S72.002A - FRACTURE OF UNSP PART OF NECK OF LEFT FEMUR, INIT Status: Acute Priority: High Current Visit: Yes Qualifiers: Encounter type: initial encounter Qualified Code(s): S72.002A - Fracture of unspecified part of neck of left femur, initial encounter for closed fracture (2) Fall SNOMED Code(s): 8480642, 074444246 Code(s): W19.XXXA - UNSPECIFIED FALL, INITIAL ENCOUNTER Status: Acute Priority: High Current Visit: Yes Qualifiers: Encounter type: initial encounter Qualified Code(s): W19.XXXA - Unspecified fall, initial encounter (3) History of DVT of lower extremity SNOMED Code(s): 064734144 Code(s): Z86.718 - PERSONAL HISTORY OF OTHER VENOUS THROMBOSIS AND EMBOLISM Status: Acute Priority: High Current Visit: Yes (4) Chronic anticoagulation SNOMED Code(s): 502522522 Code(s): Z79.01 - [employer] (CURRENT) USE OF ANTICOAGULANTS Status: Chronic Priority: Medium Current Visit: Yes (5) GERD (gastroesophageal reflux disease) SNOMED Code(s): 171854086 Code(s): K21.9 - GASTRO-ESOPHAGEAL REFLUX DISEASE WITHOUT ESOPHAGITIS Status: Chronic Priority: Low Current Visit: No Qualifiers: Esophagitis presence: esophagitis presence not specified Qualified Code(s): K21.9 - Gastro-esophageal reflux disease without esophagitis (6) HLD (hyperlipidemia) SNOMED Code(s): 53888954 Code(s): E78.5 - HYPERLIPIDEMIA, UNSPECIFIED Status: Chronic Priority: Low Current Visit: No Qualifiers: Hyperlipidemia type: unspecified Qualified Code(s): E78.5 - Hyperlipidemia, unspecified (7) HTN (hypertension) SNOMED Code(s): 16212494 Code(s): I10 - ESSENTIAL (PRIMARY) HYPERTENSION Status: Chronic Priority: Medium Current Visit: No Qualifiers: Hypertension type: unspecified Qualified Code(s): I10 - Essential (primary) hypertension (8) History of heart bypass surgery SNOMED Code(s): 125527268 Code(s): Z95.1 - PRESENCE OF AORTOCORONARY BYPASS GRAFT Status: Chronic Priority: Medium Current Visit: No (9) History of pulmonary embolism SNOMED Code(s): 396790426 Code(s): Z86.711 - PERSONAL HISTORY OF PULMONARY EMBOLISM Status: Chronic Priority: Medium Current Visit: No - Problem List Review Problem List Initiated/Reviewed/Updated: Yes - Assessment Assessment:: 10/10/20 * continue to hold plavix until after surgical repair of left hip * Tylenol and norco for pain control * K+ 3.4 * VSS and patient has been afebrile * awaiting surgery on Saturday - Plan Plan:: Assessment - Day of Admission - 10/09/2020: * 70yo male who slipped on the ice and fell landing on left hip resulting in hip fracture * Denies hitting head. Denies head, neck, back, chest, abdominal pain. Denies LOC. * Labs in ED grossly unremarkable * 12-lead EKG in ED shows sinus rhythm at 66 BPM with old anterior infarct * CXR obtained on floor shows nothing acute * History of DVT, PE, HLD, HTN, CABG, GERD, and reports constipation with opiates * Left hip X-ray shows minimally displaced subcaptial fracture to left hip * Patient reports pain controlled when lying down or sitting - painful when weightbearing * NSQIP risk calculator - grossly below average risk overall * COVID-19 screen negative Plan: Closed left hip fracture Fall Chronic anticoagulation History of heart bypass surgery History of pulmonary embolism History of DVT * Repair of left hip fx is scheduled on Saturday * Hold plavix * PT/OT * IS * Type and screen * Daily labs * Consult CM/SW for discharge planning * Lovenox/SCDs for VTE prevention * Bedrest bedside commode * Tylenol for fever pain * [place] for more sever pain * Schedule Colace due to history of constipation with opiates HTN (hypertension) HLD (hyperlipidemia) GERD (gastroesophageal reflux disease) * Home medications as ordered Supplement with potassium 40meq po today. PCP: Dr. Hayward Code status: Full Code DVT prophylaxis: Lovenox/SCDs GI prophylaxis: Home PPI Social: Patient lives independently at home with who is a former nurse Disposition: Patient admitted to [facility] for planned surgical fixation of left hip fracture. Will require delay in planning of surgery due to home Plavix. Anticipate LOS of 4-5 days. Prognosis: Good
--- NOTE | 2020-10-10 15:06 | PCM.PREANE ---
Preanesthetic Assessment - Procedure Proposed Procedure: Left Total Hip Arthroplasty - Anesthesia/Transfusion/Family Hx Anesthesia History: Prior Anesthesia Without Reaction Family History of Anesthesia Reaction: No Transfusion History: No Prior Transfusion(s) - Review of Systems General: No Symptoms Pulmonary: No Symptoms (Former Smoker, 1994 last use. Current Cigar use. ) Cardiovascular: No Symptoms, Other (CABG 2016 4 vessel bypass, no issues since this time. Follows with cardiology regularly. ) Gastrointestinal: Other (GERD) Neurological: Difficulty Walking (Fractured hip) Other: Reports: Easy Bleeding, Easy Bruising (On Plavix last dose 10/09/20.) - Physical Assessment NPO Status Date: 10/11/20 NPO Status Time: 00:01 Vital Signs: Last Vital Signs Temp 36.8 C 10/10/20 11:27 Pulse 61 10/10/20 11:27 Resp 18 10/10/20 11:27 BP 131/70 10/10/20 11:27 Pulse Ox 93 L 10/10/20 13:55 Height: 1.78 m Weight: 93.848 kg ASA Class: 3 Mental Status: Alert & Oriented x3 Airway Class: Mallampati = 2 Dentition: Reports: Missing Tooth/Teeth, Caries Thyro-Mental Finger Breadths: 3 Mouth Opening Finger Breadths: 3 ROM/Head Extension: Full Lungs: Clear to Auscultation, Normal Respiratory Effort, Decreased Breath Sounds Cardiovascular: Regular Rate, Regular Rhythm - Lab Values: Laboratory Last Values WBC 13.22 K/mm3 (4.23-9.07) H 10/10/20 06:23 RBC 4.57 M/mm3 (4.63-6.08) L 10/10/20 06:23 Hgb 14.1 gm/dl (13.7-17.5) 10/10/20 06:23 Hct 42.2 % (40.1-51.0) 10/10/20 06:23 MCV 92.3 fl (79.0-92.2) H 10/10/20 06:23 MCH 30.9 pg (25.7-32.2) 10/10/20 06:23 MCHC 33.4 g/dl (32.2-35.5) 10/10/20 06:23 RDW Std Deviation 45.7 fL (35.1-43.9) H 10/10/20 06:23 Plt Count 196 K/mm3 (163-337) 10/10/20 06:23 MPV 10.7 fl (9.4-12.3) 10/10/20 06:23 Neut % (Auto) 72.4 % (34.0-67.9) H 10/10/20 06:23 Lymph % (Auto) 12.9 % (21.8-53.1) L 10/10/20 06:23 [place] % (Auto) 11.0 % (5.3-12.2) 10/10/20 06:23 Eos % (Auto) 3.3 (0.8-7.0) 10/10/20 06:23 Baso % (Auto) 0.3 % (0.1-1.2) 10/10/20 06:23 Neut # (Auto) 9.57 K/mm3 (1.78-5.38) H 10/10/20 06:23 Lymph # (Auto) 1.71 K/mm3 (1.32-3.57) 10/10/20 06:23 [place] # (Auto) 1.46 K/mm3 (0.30-0.82) H 10/10/20 06:23 Eos # (Auto) 0.43 K/mm3 (0.04-0.54) 10/10/20 06:23 Baso # (Auto) 0.04 K/mm3 (0.01-0.08) 10/10/20 06:23 Manual Slide Review Normal smear 10/09/20 09:40 PT 10.0 SECONDS (9.7-12.0) 10/09/20 09:40 INR 0.93 10/09/20 09:40 APTT 22.2 SECONDS (21.7-31.4) 10/09/20 09:40 Sodium 137 mEq/L (136-145) 10/10/20 06:23 Potassium 3.4 mEq/L (3.5-5.1) L 10/10/20 06:23 Chloride 101 mEq/L (98-107) 10/10/20 06:23 Carbon Dioxide 24 mEq/L (21-32) 10/10/20 06:23 Anion Gap 15.4 (5-15) H 10/10/20 06:23 BUN 19 mg/dL (7-18) H 10/10/20 06:23 Creatinine 1.1 mg/dL (0.7-1.3) 10/10/20 06:23 Est Cr Clr Drug Dosing 64.52 mL/min 10/10/20 06:23 Estimated GFR (MDRD) > 60 mL/min (>60) 10/10/20 06:23 BUN/Creatinine Ratio 17.3 (14-18) 10/10/20 06:23 Glucose 129 mg/dL (80-115) H 10/10/20 06:23 Calcium 9.0 mg/dL (8.5-10.1) 10/10/20 06:23 Magnesium 2.1 mg/dl (1.8-2.4) 10/10/20 06:23 Total Bilirubin 0.5 mg/dL (0.2-1.0) 10/10/20 06:23 AST 21 U/L (15-37) 10/10/20 06:23 ALT 25 U/L (16-63) 10/10/20 06:23 Alkaline Phosphatase 56 U/L (46-116) 10/10/20 06:23 Troponin I < 0.017 ng/mL (0.00-0.056) 10/09/20 09:40 Total Protein 6.9 g/dl (6.4-8.2) 10/10/20 06:23 Albumin 3.2 g/dl (3.4-5.0) L 10/10/20 06:23 Globulin 3.7 gm/dL 10/10/20 06:23 Albumin/Globulin Ratio 0.9 (1-2) L 10/10/20 06:23 SARS-CoV-2 RNA (OG) Negative (NEGATIVE) 10/09/20 09:36 MRSA (PCR) Negative 10/10/20 11:45 Blood Type B POSITIVE 10/09/20 09:40 Gel Antibody Screen Negative 10/09/20 09:40 - Imaging/EKG Impressions: SR at 66 bpm, old anterior infarct. - Allergies Allergies/Adverse Reactions: Allergies Allergy/AdvReac Type Severity Reaction Status Date / Time codeine AdvReac Other Verified 10/09/20 11:29 - Blood Blood Available: Yes Product(s) Available: PRBC (type and screen done) - Anesthesia Plan Pre-Op Medication Ordered: Other (Albuterol Nebulizer Treatment. ) Beta Nara: Metoprolol Med Last Dose Date: 10/11/20 Med Last Dose Time: 08:28 - Acknowledgements Anesthesia Type Planned: General Anesthesia (Due to plavix use. ) Pt an Appropriate Candidate for the Planned Anesthesia: Yes Alternatives and Risks of Anesthesia Discussed w Pt/Guardian: Yes Pt/Guardian Understands and Agrees with Anesthesia Plan: Yes PreAnesthesia Questionnaire HEENT History: Reports: Impaired Vision Other HEENT History: wear glasses Cardiovascular History: Reports: Blood Clots/VTE/DVT, Bypass, High Cholesterol, Hypertension Respiratory History: Reports: PE, Other (See Below) Other Respiratory History: DVT in leg that traveled to lungs. Gastrointestinal History: Reports: GERD, Other (See Below) Other Gastrointestinal History: hernia surgery x2 Musculoskeletal History: Reports: None Neurological History: Reports: None Endocrine/Metabolic History: Reports: None - Infectious Disease History Infectious Disease History: Reports: Chicken Pox, Measles - Past Surgical History HEENT Surgical History: Reports: None Cardiovascular Surgical History: Reports: Coronary Artery Bypass GI Surgical History: Reports: Hernia, Inguinal - SUBSTANCE USE Tobacco Use Status *Q: Former Tobacco User Recreational Drug Use History: No - HOME MEDS Home Medications: Home Meds Aspirin [Adult Low Dose Aspirin EC] 81 mg PO DAILY 09/24/17 [History] Multivitamin [One Daily Multivitamin] 1 tab PO DAILY 09/24/17 [History] Omeprazole 20 mg PO ASDIRECTED 09/24/17 [History] Vitamin B Complex Vit C No.4 [Super B Complex] 150 mg PO DAILY 09/24/17 [History] atorvaSTATin [Lipitor] 40 mg PO DAILY 09/24/17 [History] Clopidogrel [Plavix] 75 mg PO DAILY 10/16/17 [History] Diltiazem HCl [Diltiazem 24Hr Cd] 240 mg PO DAILY 10/16/17 [History] Metoprolol Tartrate 25 mg PO BID 10/16/17 [History] Acetaminophen [Tylenol Extra Strength] 500 mg PO BID 10/09/20 [History] Brimonidine Tartrate/Timolol [[place] Eye Drops] 1 drop OP BID 10/09/20 [History] - CURRENT (IN HOUSE) MEDS Current Meds: Current Medications Acetaminophen (Tylenol) 650 mg PO Q4H PRN PRN Reason: Pain (Mild 1-3)/fever Last Admin: 10/09/20 16:46 Dose: 650 mg Documented by: Hydrocodone Bitart/Acetaminophen ([place] 325-5 Mg) 1 tab PO Q4H PRN PRN Reason: Pain (moderate 4-6) Last Admin: 10/10/20 13:47 Dose: 1 tab Documented by: Brimonidine Tartrate (Alphagan 0.2% Ophth Soln) 0 ml EYEBOTH BID [facility] Last Admin: 10/10/20 09:45 Dose: 1 drop Documented by: Cyclobenzaprine HCl (Flexeril) 10 mg PO TID PRN PRN Reason: Spasms Diltiazem HCl (Dilacor Xr) 240 mg PO DAILY [facility] Last Admin: 10/10/20 09:44 Dose: 240 mg Documented by: Docusate Sodium (Colace) 100 mg PO BID [facility] Last Admin: 10/10/20 09:44 Dose: 100 mg Documented by: Enoxaparin Sodium (Lovenox) 40 mg SUBCUT DAILY [facility] Last Admin: 10/10/20 09:43 Dose: 40 mg Documented by: Metoprolol Tartrate (Lopressor) 25 mg PO BID [facility] Last Admin: 10/10/20 09:44 Dose: 25 mg Documented by: Multivitamins (Thera) 1 each PO DAILY [facility] Last Admin: 10/10/20 09:43 Dose: 1 each Documented by: Ondansetron HCl (Zofran) 4 mg IV Q6H PRN PRN Reason: Nausea/Vomiting Pantoprazole Sodium (Protonix) 40 mg PO TuThSa@0900 [facility] Rosuvastatin Calcium (Crestor) 10 mg PO DAILY [facility] Last Admin: 10/10/20 09:43 Dose: 10 mg Documented by: Sodium Chloride (Saline Flush) 10 ml FLUSH ASDIRECTED PRN PRN Reason: Keep Vein Open Last Admin: 10/09/20 09:51 Dose: 10 ml Documented by: Timolol Maleate (Timoptic 0.5% Ophth Soln) 0 ml EYEBOTH BID [facility] Last Admin: 10/10/20 09:45 Dose: 1 drop Documented by: Discontinued Medications Brimonidine Tartrate (Brimonidine Tartrate 0.2% Ophth Soln) 0 ml EYEBOTH BID [facility] Last Admin: 10/09/20 22:47 Dose: Not Given Documented by: Docusate Sodium (Colace) 100 mg PO BID PRN PRN Reason: Constipation Potassium Chloride (Klor-Con M20) 40 meq PO ONETIME ONE Stop: 10/10/20 07:36 Last Admin: 10/10/20 09:44 Dose: 40 meq Documented by:
[2020-10-10] MEDS: Cyclobenzaprine 10 MG Tab PO PRN (17:14)
[2020-10-10] MEDS: Acetaminophen 325 MG Tab PO PRN (20:33)
[2020-10-11] MEDS: Cyclobenzaprine 10 MG Tab PO PRN (01:24)
[2020-10-11] MEDS: Acetaminophen/HYDROcodone 325-5 MG Tab PO PRN (01:24)
--- NOTE | 2020-10-11 07:15 | PCM.PN ---
- General Info Date of Service: 10/11/20 Admission Dx/Problem (Free Text): Admission Diagnosis/Problem Admission Diagnosis/Problem Hip fracture requiring operative repair Subjective Update: In to see Sacha. He remains stable. He continues to complain of left hip pain. He has yet to have a bowel movement but he has had minimal intake. He is scheduled for surgery today. Will adjust plan for post-op. Functional Status: Reports: Pain Controlled, Tolerating Diet (minimal intake ), Urinating, Incentive Spirometry. Denies: Ambulating, New Symptoms - Review of Systems General: Reports: No Symptoms. Denies: Fever, Weakness, Fatigue, Malaise, Chills HEENT: Reports: No Symptoms. Denies: Headaches, Sore Throat Pulmonary: Reports: No Symptoms. Denies: Shortness of Breath, Pleuritic Chest Pain, Cough, Sputum, Wheezing Cardiovascular: Reports: No Symptoms. Denies: Chest Pain, Palpitations, Dyspnea on Exertion, Edema Gastrointestinal: Reports: No Symptoms. Denies: Abdominal Pain, Constipation, Diarrhea, Nausea, Vomiting Genitourinary: Reports: No Symptoms. Denies: Pain Musculoskeletal: Reports: Leg Pain (left) Skin: Reports: No Symptoms. Denies: Cyanosis Neurological: Reports: Difficulty Walking, Gait Disturbance. Denies: Confusion, Numbness, Tingling Psychiatric: Reports: No Symptoms - Patient Data Vitals - Most Recent: Last Vital Signs Temp 98.2 F 10/11/20 02:52 Pulse 64 10/11/20 02:52 Resp 21 H 10/11/20 00:17 BP 156/100 H 10/11/20 02:52 Pulse Ox 90 L 10/11/20 02:52 Weight - Most Recent: 205 lb 12.8 oz I&O - Last 24 Hours: Intake & Output 10/10/20 10/11/20 10/11/20 22:59 06:59 14:59 Intake Total 640 50 Output Total 350 Balance 640 -300 Lab Results Last 24 Hours: Laboratory Results - last 24 hr 10/10/20 10/11/20 10/11/20 Range/Units 11:45 06:07 06:07 WBC 11.95 H (4.23-9.07) K/mm3 RBC 4.76 (4.63-6.08) M/mm3 Hgb 14.4 (13.7-17.5) gm/dl Hct 44.9 (40.1-51.0) % MCV 94.3 H (79.0-92.2) fl MCH 30.3 (25.7-32.2) pg MCHC 32.1 L (32.2-35.5) g/dl RDW Std Deviation 47.7 H (35.1-43.9) fL Plt Count 176 (163-337) K/mm3 MPV 10.8 (9.4-12.3) fl Neut % (Auto) 63.4 (34.0-67.9) % Lymph % (Auto) 16.4 L (21.8-53.1) % Josephine % (Auto) 13.4 H (5.3-12.2) % Eos % (Auto) 5.9 (0.8-7.0) Baso % (Auto) 0.6 (0.1-1.2) % Neut # (Auto) 7.58 H (1.78-5.38) K/mm3 Lymph # (Auto) 1.96 (1.32-3.57) K/mm3 Josephine # (Auto) 1.60 H (0.30-0.82) K/mm3 Eos # (Auto) 0.71 H (0.04-0.54) K/mm3 Baso # (Auto) 0.07 (0.01-0.08) K/mm3 Sodium 139 (136-145) mEq/L Potassium 4.6 (3.5-5.1) mEq/L Chloride 103 (98-107) mEq/L Carbon Dioxide 28 (21-32) mEq/L Anion Gap 12.6 (5-15) BUN 19 H (7-18) mg/dL Creatinine 1.1 (0.7-1.3) mg/dL Est Cr Clr Drug Dosing 64.52 mL/min Estimated GFR (MDRD) > 60 (>60) mL/min BUN/Creatinine Ratio 17.3 (14-18) Glucose 99 (80-115) mg/dL Calcium 9.1 (8.5-10.1) mg/dL Magnesium 2.1 (1.8-2.4) mg/dl Total Bilirubin 0.6 (0.2-1.0) mg/dL AST 14 L (15-37) U/L ALT 22 (16-63) U/L Alkaline Phosphatase 54 (46-116) U/L Total Protein 7.1 (6.4-8.2) g/dl Albumin 3.2 L (3.4-5.0) g/dl Globulin 3.9 gm/dL Albumin/Globulin Ratio 0.8 L (1-2) MRSA (PCR) Negative Med Orders - Current: Current Medications Acetaminophen (Tylenol) 650 mg PO Q4H PRN PRN Reason: Pain (Mild 1-3)/fever Last Admin: 10/10/20 20:33 Dose: 650 mg Documented by: Hydrocodone Bitart/Acetaminophen ([place] 325-5 Mg) 1 tab PO Q4H PRN PRN Reason: Pain (moderate 4-6) Last Admin: 10/11/20 01:24 Dose: 1 tab Documented by: Albuterol (Proventil Neb Soln) 2.5 mg NEB ONETIME ONE Stop: 10/11/20 11:01 Brimonidine Tartrate (Alphagan 0.2% Ophth Soln) 0 ml EYEBOTH BID [facility] Last Admin: 10/10/20 20:33 Dose: 1 drop Documented by: Cyclobenzaprine HCl (Flexeril) 10 mg PO TID PRN PRN Reason: Spasms Last Admin: 10/11/20 01:24 Dose: 10 mg Documented by: Diltiazem HCl (Dilacor Xr) 240 mg PO DAILY [facility] Last Admin: 10/10/20 09:44 Dose: 240 mg Documented by: Docusate Sodium (Colace) 100 mg PO BID [facility] Last Admin: 10/10/20 20:34 Dose: 100 mg Documented by: Enoxaparin Sodium (Lovenox) 40 mg SUBCUT DAILY [facility] Last Admin: 10/10/20 09:43 Dose: 40 mg Documented by: Metoprolol Tartrate (Lopressor) 25 mg PO BID [facility] Last Admin: 10/10/20 20:34 Dose: 25 mg Documented by: Multivitamins (Thera) 1 each PO DAILY [facility] Last Admin: 10/10/20 09:43 Dose: 1 each Documented by: Ondansetron HCl (Zofran) 4 mg IV Q6H PRN PRN Reason: Nausea/Vomiting Pantoprazole Sodium (Protonix) 40 mg PO TuThSa@0900 [facility] Rosuvastatin Calcium (Crestor) 10 mg PO DAILY [facility] Last Admin: 10/10/20 09:43 Dose: 10 mg Documented by: Sodium Chloride (Saline Flush) 10 ml FLUSH ASDIRECTED PRN PRN Reason: Keep Vein Open Last Admin: 10/09/20 09:51 Dose: 10 ml Documented by: Timolol Maleate (Timoptic 0.5% Ophth Soln) 0 ml EYEBOTH BID [facility] Last Admin: 10/10/20 20:31 Dose: 1 drop Documented by: Discontinued Medications Brimonidine Tartrate (Brimonidine Tartrate 0.2% Ophth Soln) 0 ml EYEBOTH BID [facility] Last Admin: 10/09/20 22:47 Dose: Not Given Documented by: Docusate Sodium (Colace) 100 mg PO BID PRN PRN Reason: Constipation Potassium Chloride (Klor-Con M20) 40 meq PO ONETIME ONE Stop: 10/10/20 07:36 Last Admin: 10/10/20 09:44 Dose: 40 meq Documented by: - Exam Quality Assessment: Supplemental Oxygen. No: Urine Catheter, DVT Prophylaxis General: Alert, Oriented, Cooperative, No Acute Distress HEENT: Pupils Equal, Pupils Reactive, Mucous Membr. Moist/[place] Neck: Supple, Trachea Midline Lungs: Clear to Auscultation, Normal Respiratory Effort Cardiovascular: Regular Rate, Regular Rhythm GI/Abdominal Exam: Normal Bowel Sounds, Soft, Non-Tender, No Distention (Male) Exam: Deferred Back Exam: Normal Inspection, Full Range of Motion Extremities: Normal Inspection, No Pedal Edema, Normal Capillary Refill, Leg Pain (left hip), Limited Range of Motion (left hip ) Peripheral Pulses: 2+: Radial (L), Radial (R), Dorsalis Pedis (L), Dorsalis Pedis (R) Skin: Warm, Dry, Intact Neurological: No New Focal Deficit Psy/Mental Status: Alert, Normal Affect, Normal Mood Sepsis Event Note - Evaluation Sepsis Screening Result: No Definite Risk - Focused Exam Vital Signs: Vital Signs Temp Pulse Resp BP Pulse Ox 10/11/20 02:52 98.2 F 64 156/100 H 90 L 10/11/20 00:17 98.8 F 56 L 21 H 137/70 94 L 10/10/20 22:25 99.5 F 10/10/20 20:34 73 112/84 10/10/20 20:33 100.6 F 10/10/20 19:50 100.6 F 73 22 H 112/84 92 L - Problem List & Annotations (1) Closed left hip fracture SNOMED Code(s): 283829105 Code(s): S72.002A - FRACTURE OF UNSP PART OF NECK OF LEFT FEMUR, INIT Stat us: Acute Priority: High Current Visit: Yes Qualifiers: Encounter type: initial encounter Qualified Code(s): S72.002A - Fracture of unspecified part of neck of left femur, initial encounter for closed fracture (2) Fall SNOMED Code(s): 0047342, 297916959 Code(s): W19.XXXA - UNSPECIFIED FALL, INITIAL ENCOUNTER Status: Acute Priority: High Current Visit: Yes Qualifiers: Encounter type: initial encounter Qualified Code(s): W19.XXXA - Unspecified fall, initial encounter (3) Chronic anticoagulation SNOMED Code(s): 529984940 Code(s): Z79.01 - AIR[employer]ANE [employer] (CURRENT) USE OF ANTICOAGULANTS Status: Chronic Priority: Medium Current Visit: Yes (4) History of heart bypass surgery SNOMED Code(s): 262666427 Code(s): Z95.1 - PRESENCE OF AORTOCORONARY BYPASS GRAFT Status: Chronic Priority: Medium Current Visit: No (5) History of pulmonary embolism SNOMED Code(s): 554519602 Code(s): Z86.711 - PERSONAL HISTORY OF PULMONARY EMBOLISM Status: Chronic Priority: Medium Current Visit: No (6) HTN (hypertension) SNOMED Code(s): 72134929 Code(s): I10 - ESSENTIAL (PRIMARY) HYPERTENSION Status: Chronic Priority: Medium Current Visit: No Qualifiers: Hypertension type: unspecified Qualified Code(s): I10 - Essential (primary) hypertension (7) HLD (hyperlipidemia) SNOMED Code(s): 90010251 Code(s): E78.5 - HYPERLIPIDEMIA, UNSPECIFIED Status: Chronic Priority: Low Current Visit: No Qualifiers: Hyperlipidemia type: unspecified Qualified Code(s): E78.5 - Hyperlipidemia, unspecified (8) GERD (gastroesophageal reflux disease) SNOMED Code(s): 142721892 Code(s): K21.9 - GASTRO-ESOPHAGEAL REFLUX DISEASE WITHOUT ESOPHAGITIS Status: Chronic Priority: Low Current Visit: No Qualifiers: Esophagitis presence: esophagitis presence not specified Qualified Code(s): K21.9 - Gastro-esophageal reflux disease without esophagitis (9) History of DVT of lower extremity SNOMED Code(s): 177247902 Code(s): Z86.718 - PERSONAL HISTORY OF OTHER VENOUS THROMBOSIS AND EMBOLISM Status: Acute Priority: High Current Visit: Yes - Problem List Review Problem List Initiated/Reviewed/Updated: Yes - My Orders Last 24 Hours: My Active Orders 10/10/20 09:00 Brimonidine [Alphagan 0.2% Ophth Soln] 0 ml EYEBOTH BID Diltiazem [Dilacor XR] 240 mg PO DAILY Enoxaparin [Lovenox] 40 mg SUBCUT DAILY Multivitamins,Therapeutic [Thera] 1 each PO DAILY Rosuvastatin [Crestor] 10 mg PO DAILY 10/11/20 06:07 CBC WITH AUTO DIFF [HEME] AM 10/11/20 07:14 HYDROmorphone [Dilaudid] 0.25 mg IVPUSH ONETIME ONE 10/11/20 09:00 Pantoprazole [ProTONIX] 40 mg PO TuThSa@0900 10/12/20 05:11 CBC WITH AUTO DIFF [HEME] AM CMP [COMPREHENSIVE METABOLIC PN,CMP] [CHEM] AM MAGNESIUM [CHEM] AM 10/13/20 05:11 CBC WITH AUTO DIFF [HEME] AM CMP [COMPREHENSIVE METABOLIC PN,CMP] [CHEM] AM MAGNESIUM [CHEM] AM - Assessment Assessment:: Assessment - Day of Admission - 10/09/2020: * 70yo male who slipped on the ice and fell landing on left hip resulting in hip fracture * Denies hitting head. Denies head, neck, back, chest, abdominal pain. Denies LOC. * Labs in ED grossly unremarkable * 12-lead EKG in ED shows sinus rhythm at 66 BPM with old anterior infarct * CXR obtained on floor shows nothing acute * History of DVT, PE, HLD, HTN, CABG, GERD, and reports constipation with opiates * Left hip X-ray shows minimally displaced subcaptial fracture to left hip * Patient reports pain controlled when lying down or sitting - painful when weightbearing * NSQIP risk calculator - grossly below average risk overall * COVID-19 screen negative 10/10/20 * continue to hold plavix until after surgical repair of left hip * Tylenol and norco for pain control * K+ 3.4 * VSS and patient has been afebrile * awaiting surgery on Saturday10/11/2020 * Resume ASA and lovenox post-operatively * Continue SCDs * WBC 11.95 - likely stress related * Potassium 4.6 * Switch norco to percocet for post-operative * VSS * Surgery today with Dr. Son * Likely discharge 10/12/20 pending PT/OT eval * MRSA/COVID-19 negative - Plan Plan:: Closed left hip fracture Fall Chronic anticoagulation History of heart bypass surgery History of pulmonary embolism History of DVT * Repair of left hip fx is scheduled on Saturday * Hold plavix * PT/OT * IS * Daily labs * Consult CM/SW for discharge planning * Lovenox/SCDs/TEDs for VTE prevention * Bedrest bedside commode - up with assistance after surgery * Tylenol for fever pain * Switch from [place] to Percocet for more sever pain * Schedule Colace due to history of constipation with opiates HTN (hypertension) HLD (hyperlipidemia) GERD (gastroesophageal reflux disease) * Home medications as ordered Supplement with potassium 40meq po today. PCP: Dr. Hayward Code status: Full Code DVT prophylaxis: Lovenox/SCDs GI prophylaxis: Home PPI Social: Patient lives independently at home with who is a former nurse Disposition: Patient admitted to [facility] for planned surgical fixation of left hip fracture. Will require delay in planning of surgery due to home Plavix. Anticipate LOS of 4-5 days. Prognosis: Good
[2020-10-11] MEDS ORDERED: HYDROmorphone 0.5 MG/0.5 ML Syringe IVPUSH ONE ×2 (07:30→09:17)
[2020-10-11] MEDS: Metoprolol Tartrate 25 MG Tab PO SCH ×2 (08:28→20:52)
[2020-10-11] MEDS: Timolol Maleate 0.5% Ophth Soln 5 ML Bottle EYEBOTH SCH ×2 (08:28→20:48)
[2020-10-11] MEDS: Multivitamins,Therapeutic Tab PO SCH (08:28)
[2020-10-11] MEDS: Brimonidine 0.2% Ophth Soln 5 ML Bottle EYEBOTH SCH ×2 (08:28→21:01)
[2020-10-11] MEDS: Rosuvastatin 10 MG Tab PO SCH (08:28)
[2020-10-11] MEDS: Docusate Sodium 100 MG Cap PO SCH ×2 (08:28→20:52)
[2020-10-11] MEDS: Diltiazem 240 MG Cap.ER PO SCH (08:29)
[2020-10-11] MEDS ORDERED: Pantoprazole 40 MG Tab.CR PO SCH (09:00)
[2020-10-11] MEDS ORDERED: Albuterol 0.083% 2.5 MG/3 ML Neb Soln NEB ONE (11:00)
[2020-10-11] MEDS ORDERED: Midazolam 1 MG/ML 2 ML SDV ONE (11:13)
[2020-10-11] MEDS ORDERED: Succinylcholine/Sod PF 100 MG/5 ML SYRINGE IV ONE (11:13)
[2020-10-11] MEDS ORDERED: Etomidate 2 MG/ML 20 ML SDV IVPUSH ONE (11:13)
[2020-10-11] MEDS ORDERED: fentaNYL 250 MCG/5 ML SDV ONE (11:13)
[2020-10-11] MEDS ORDERED: Lidocaine 1% 4 ML ONE (11:21)
[2020-10-11] MEDS ORDERED: Ondansetron 4 MG/2 ML SDV ONE (11:46)
[2020-10-11] MEDS ORDERED: ceFAZolin 1 GM Vial ONE (11:48)
[2020-10-11] MEDS ORDERED: ePHEDrine 50 MG/ML SDV ONE (12:02)
[2020-10-11] MEDS: Bupivacaine 0.25% 10 ML SDV ONE ×2 (12:24→12:49)
[2020-10-11] MEDS ORDERED: HYDROmorphone 0.5 MG/0.5 ML Syringe IVPUSH PRN (12:39)
[2020-10-11] MEDS ORDERED: fentaNYL 100 MCG/2 ML SDV IVPUSH PRN (12:39)
[2020-10-11] MEDS: Morphine 8 MG, EPINEPHrine 0.3 MG, Cefuroxime 750 MG, Ketorolac 30 MG, Sodium Chloride ... PRN ×15 (12:41→12:50)
[2020-10-11] MEDS: Vancomycin 1 GM SDV ONE ×3 (12:41→12:55)
[2020-10-11] MEDS ORDERED: Lactated Ringers 1,000 ML ONE (12:50)
[2020-10-11] MEDS ORDERED: Bupivacaine 0.25% 10 ML SDV ONE (13:01)
--- NOTE | 2020-10-11 13:39 | PCM.POSTAN ---
POST ANESTHESIA ASSESSMENT - MENTAL STATUS Mental Status: Somnolent - VITAL SIGNS Vital Signs: Last Vital Signs Temp 98.7 F 10/11/20 13:23 Pulse 68 10/11/20 08:28 Resp 13 10/11/20 13:23 BP 142/71 H 10/11/20 13:23 Pulse Ox 92 L 10/11/20 13:23 - RESPIRATORY Respiratory Status: Respiratory Rate WNL, Airway Patent, O2 Saturation Stable, Supplemental Oxygen - CARDIOVASCULAR CV Status: Pulse Rate WNL, Blood Pressure Stable - GASTROINTESTINAL GI Status: No Symptoms - PAIN Pain Score: 0 - POST OP HYDRATION Hydration Status: Adequate & Stable
[2020-10-11] MEDS ORDERED: Cyclobenzaprine 10 MG Tab PO PRN (14:02)
--- NOTE | 2020-10-11 14:43 | PCM48HPAN ---
Post Anesthesia Note - EVALUATION WITHIN 48HRS OF ANESTHETIC Vital Signs in Normal Range: Yes Patient Participated in Evaluation: Yes Respiratory Function Stable: Yes Airway Patent: Yes Cardiovascular Function Stable: Yes Hydration Status Stable: Yes Pain Control Satisfactory: Yes Nausea and Vomiting Control Satisfactory: Yes Mental Status Recovered: Yes Vital Signs: Last Vital Signs Temp 97.5 F 10/11/20 14:25 Pulse 68 10/11/20 08:28 Resp 14 10/11/20 14:25 BP 119/67 10/11/20 14:25 Pulse Ox 94 L 10/11/20 14:25 - COMMENTS/OBSERVATIONS Free Text/Narrative:: Patient is being transferred to the floor for extended recovery prior to discharge
--- NOTE | 2020-10-11 16:20 | CR ---
Left hip and pelvis: AP view of the pelvis was obtained as well as crosstable lateral view of the left hip. Comparison: Prior pelvis exam of 10/09/18. Left hip prosthesis is seen which is an interval change from prior exam. Components are aligned. Soft tissue air is noted from the surgical procedure. Surgical clips are seen within the right groin. Minimal joint space narrowing is seen within the right hip. Impression: 1. Recently placed left hip prosthesis. 2. Other findings as noted above which are stable. Diagnostic code #2
[2020-10-11] MEDS: Acetaminophen 325 MG Tab PO SCH (20:53)
[2020-10-11] MEDS: ceFAZolin 2 GM in Premix Bag 1 BAG IV SCH (20:55)
[2020-10-12] MEDS: Acetaminophen 325 MG Tab PO PRN (05:16)
[2020-10-12] MEDS: Acetaminophen 325 MG Tab PO SCH ×2 (05:16→09:18)
[2020-10-12] MEDS: ceFAZolin 2 GM in Premix Bag 1 BAG IV SCH ×2 (05:17→11:10)
[2020-10-12] MEDS ORDERED: Vitamin B Complex With Vitamin C Cap PO SCH (09:00)
[2020-10-12] MEDS ORDERED: Enoxaparin 40 MG/0.4 ML Syringe SUBCUT SCH (09:00)
[2020-10-12] MEDS ORDERED: Aspirin 81 MG Tab.EC PO SCH (09:00)
[2020-10-12] MEDS ORDERED: Clopidogrel 75 MG Tab PO SCH (09:00)
[2020-10-12] MEDS: Timolol Maleate 0.5% Ophth Soln 5 ML Bottle EYEBOTH SCH (09:13)
[2020-10-12] MEDS: Brimonidine 0.2% Ophth Soln 5 ML Bottle EYEBOTH SCH (09:13)
[2020-10-12] MEDS: Acetaminophen/oxyCODONE 325-5 MG Tab PO PRN ×2 (09:17→14:53)
[2020-10-12] MEDS: Diltiazem 240 MG Cap.ER PO SCH (09:18)
[2020-10-12] MEDS: Docusate Sodium 100 MG Cap PO SCH (09:18)
[2020-10-12] MEDS: Rosuvastatin 10 MG Tab PO SCH (09:18)
[2020-10-12] MEDS: Metoprolol Tartrate 25 MG Tab PO SCH (09:19)
[2020-10-12] MEDS: Multivitamins,Therapeutic Tab PO SCH (09:19)
--- NOTE | 2020-10-12 12:58 | PCM.DCSUM1 ---
Discharge Summary - Hospital Course HPI Initial Comments: This is a 70-year-old male who presented to ED on 10/09/2020 after a fall resulting in left hip pain. Patient reports he was walking into [place] and slipped on the ice and fell, landing on his left hip. Denies any head neck or back pain and reports he did not hit his head. No loss of consciousness. Denies any chest or abdominal pain. Reports minimal pain while sitting or lying down but 6 out of 10 pain while weightbearing. In the ED temp is 97.9. Pulse 63. Blood pressure 166/80. Respirations 18. Pulse ox 100% on room air. Twelve-lead EKG is obtained showing a sinus rhythm at 66 bpm. 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 No acute changes or signs of ischemia. Labs are obtained. WBC is elevated at 12.12, which is likely due to stress reaction. Hemoglobin is 15.5. Hematocrit 47.6. Platelets are good at 240,000. Neutrophils are elevated at 74.5%. INR 0.93. Sodium 137. Potassium 3.8. Chloride 101. Carbon oxide 27. Anion gap 12.8. BUN is 17. Creatinine 1.2. GFR is 60. Glucose 110. Calcium 9.6. Bilirubin 0.4. AST is 24, ALT 32, alkaline phosphatase 78. Troponin is less than 0.017. Protein is high at 8.3. Albumin 4.1. SARS-CoV-2 RNA is negative. Hip x-rays obtained showing a minimally displaced subcapital fracture of the left hip and other incidental findings. Orthopedic surgeon, Dr. Son, is consulted through the ED. Patient is on Plavix and will likely require surgery on Saturday, which gives this time to wear off. He carries a history of DVT, PE, coronary bypass, GERD, HLD, hypertension. He reports prior constipation with opioids. His PCP is Dr. Hayward. His loom blower is Dr. Callahan. He is a full code. He is subsequently mid to the medical floor for planned surgical fixation of his left hip fracture. Diagnosis: Stroke: No - Discharge Data Discharge Date: 10/12/20 (Admit date: 10/09/20) Discharge Disposition: Home, Self-Care 01 Condition: Good - Referral to Home Health Primary Care Physician: Ezequiel Mccauley MD - Discharge Diagnosis/Problem(s) (1) Closed left hip fracture SNOMED Code(s): 343893227 ICD Code: S72.002A - FRACTURE OF UNSP PART OF NECK OF LEFT FEMUR, INIT Status: Acute Priority: High Current Visit: Yes Qualifiers: Encounter type: initial encounter Qualified Code(s): S72.002A - Fracture of unspecified part of neck of left femur, initial encounter for closed fracture (2) Fall SNOMED Code(s): 9264547, 105325703 ICD Code: W19.XXXA - UNSPECIFIED FALL, INITIAL ENCOUNTER Status: Acute Priority: High Current Visit: Yes Qualifiers: Encounter type: initial encounter Qualified Code(s): W19.XXXA - Unspecified fall, initial encounter (3) Chronic anticoagulation SNOMED Code(s): 176479860 ICD Code: Z79.01 - ENRICHMENT ASSISTANT (CURRENT) USE OF ANTICOAGULANTS Status: Chronic Priority: Medium Current Visit: Yes (4) History of heart bypass surgery SNOMED Code(s): 266273205 ICD Code: Z95.1 - PRESENCE OF AORTOCORONARY BYPASS GRAFT Status: Chronic Priority: Medium Current Visit: No (5) History of pulmonary embolism SNOMED Code(s): 410819260 ICD Code: Z86.711 - PERSONAL HISTORY OF PULMONARY EMBOLISM Status: Chronic Priority: Medium Current Visit: No (6) HTN (hypertension) SNOMED Code(s): 68795681 ICD Code: I10 - ESSENTIAL (PRIMARY) HYPERTENSION Status: Chronic Priority: Medium Current Visit: No Qualifiers: Hypertension type: unspecified Qualified Code(s): I10 - Essential (primary) hypertension (7) HLD (hyperlipidemia) SNOMED Code(s): 50354548 ICD Code: E78.5 - HYPERLIPIDEMIA, UNSPECIFIED Status: Chronic Priority: Low Current Visit: No Qualifiers: Hyperlipidemia type: unspecified Qualified Code(s): E78.5 - Hyperlipidemia, unspecified (8) GERD (gastroesophageal reflux disease) SNOMED Code(s): 680323414 ICD Code: K21.9 - GASTRO-ESOPHAGEAL REFLUX DISEASE WITHOUT ESOPHAGITIS Status: Chronic Priority: Low Current Visit: No Qualifiers: Esophagitis presence: esophagitis presence not specified Qualified Code(s): K21.9 - Gastro-esophageal reflux disease without esophagitis (9) History of DVT of lower extremity SNOMED Code(s): 000036149 ICD Code: Z86.718 - PERSONAL HISTORY OF OTHER VENOUS THROMBOSIS AND EMBOLISM Status: Acute Priority: High Current Visit: Yes - Patient Summary/Data Consults: Consultations 10/09/20 12:01 Consult to Case Management/Door Glass Installer [CONS] Routine Consult to Physician [CONS] Routine Consult to Spiritual Care [CONS] Routine 10/11/20 14:02 OT Evaluation and Treatment [CONS] Routine PT Evaluation and Treatment [CONS] Routine Labs Pending at D/C: None Recommended Follow-up Testing/Procedures: Follow-up with primary care provider as scheduled prior. Follow-up with Dr. Son's office as scheduled. Hospital Course: Sacha was admitted to the floor after slipping on the ice and landing on his left hip resulting in a minimally displaced subcapital fracture of the left hip. He was on Plavix and this delayed his surgery. Dr. Son, orthopedic surgeon, performed a left CARLY on 10/11/20. Postoperatively Sacha continued to do well. He was up ambulating and working with PT/OT. He had urinated and was eating. PT/OT deemed him appropriate for discharge home. Labs and vital signs remained stable. Post-operatively he was noted to have a very low grade fever of 100.8. This resolved with tylenol. UA was obtained and was negative for any signs of infection. He denied any cough or SOB. He was encouraged to continue to utilize his incentive spirometer. He was prescribed PRN percocet for pain. He was also prescribed Colace for bowel regularity. Given his history of VTE, PE, and CABG, he was started on 2.5mg BID eliquis for a total of 35 days. Discussed his home Plavix and ASA with PCP. Will hold ASA and Plavix at discharge and PCP can resume these when appropriate. He was discharged home today. He has an appointment with his PCP already scheduled for Saturday and was encouraged to attend this appointment. Follow-up appointment was scheduled for Dr. Son's office prior to discharge. He was instructed to contact his PCP or return to the Emergency Department should symptoms return or develop. - Patient Instructions Diet: Usual Diet as Tolerated Activity: Apply Ice, As Tolerated, Elevate Extremity, Full Weight Bearing Driving: Do Not Drive Driving, Other: Follow the total hip precautions. Showering/Bathing: May Shower Wound/Incision Care: Keep Operative Site/Wound Site Clean and Dry, Do NOT Change Dressing Notify Provider of: Fever, Increased Pain, Swelling and Redness, Drainage, Nausea and/or Vomiting Other/Special Instructions: Please get up and moving around EVERY HOUR while awake. This helps to prevent blood clots. Please use your walker and have help with mobility as needed. Take a short walk in your home every hour while awake. At home, please complete the exercises that you learned after surgery. Schedule for physical therapy. Use the pain medication as needed. The medication may cause drowsiness and constipation. Contact your primary care provider for instructions if you are constipated. You may use a stool softener like docusate sodium or Colace 100mg twice daily and/or a laxative like Miralax daily for constipation. Increase your water and fiber intake while you are using the pain medication. Please discontinue use of the prescription pain medication as soon as able. The goal is to use the least amount of prescription pain medication as possible and to discontinue use of the prescription pain medication as soon as possible. Please do not use other medications that may cause drowsiness (other pain medications, anxiety pills, cold medications, sleeping pills, etc) while using the prescription pain medication. Do not use alcohol while using the pain medication. You may use acetaminophen or Tylenol for pain management, however, please ensure you are not using over 4000 mg or 4 grams of acetaminophen per day. If you can tolerate use of the DEMETRIS hose, wear them during the day and remove them at night. Elevate the limb to decrease swelling. Place ice to the area often. Place a towel between your skin and the blue pad. Please keep the dressing in place until follow-up. As long as the dressing is sealed and without a hole, the dressing is water resistant and therefore, you may have a shower. Please do not soak that dressing in a tub, pool, whirlpool. Notify the Clinic if the dressing becomes saturated. It is normal to have swelling and bruising at the surgical site, as well as above and below the surgical site. If you have questions or concerns, please call [phone] and leave a message for the nurse. Your call will be returned. Follow-up with Dr. Hayward's office as scheduled. - Discharge Plan *PRESCRIPTION DRUG MONITORING PROGRAM REVIEWED*: No *COPY OF PRESCRIPTION DRUG MONITORING REPORT IN PATIENT GURPREET: No Prescriptions/Med Rec: Docusate Sodium [Colace] 100 mg PO DAILY #20 cap Apixaban [Eliquis] 2.5 mg PO BID 35 Days #70 tablet Acetaminophen/oxyCODONE [Percocet 325-5 MG] 1 tab PO Q4H PRN #20 tablet PRN Reason: Pain Home Medications: Home Meds Multivitamin [One Daily Multivitamin] 1 tab PO DAILY 09/24/17 [History] Omeprazole 20 mg PO ASDIRECTED 09/24/17 [History] Vitamin B Complex Vit C No.4 [Super B Complex] 150 mg PO DAILY 09/24/17 [History] atorvaSTATin [Lipitor] 40 mg PO DAILY 09/24/17 [History] Diltiazem HCl [Diltiazem 24Hr Cd] 240 mg PO DAILY 10/16/17 [History] Metoprolol Tartrate 25 mg PO BID 10/16/17 [History] Acetaminophen [Tylenol Extra Strength] 500 mg PO BID 10/09/20 [History] Brimonidine Tartrate/Timolol [Combigan 0.2%-0.5% Eye Drops] 1 drop OP BID 10/09/20 [History] Acetaminophen/oxyCODONE [Percocet 325-5 MG] 1 tab PO Q4H PRN #20 tablet 10/12/20 [Rx] Apixaban [Eliquis] 2.5 mg PO BID 35 Days #70 tablet 10/12/20 [Rx] Docusate Sodium [Colace] 100 mg PO DAILY #20 cap 10/12/20 [Rx] Oxygen Therapy Mode: Room Air Patient Handouts: Apixaban oral tablets Forms: ED Department Discharge Referrals: Charlee Lackey PA-C [Physician High School Counselor] - 10/19/20 11:00 am Ezequiel Mccauley MD [Primary Care Provider] - 10/24/20 10:00 am (Hospital follow- up.) - Discharge Summary/Plan Comment DC Time >30 min.: Yes (45 mins ) - General Info Date of Service: 10/12/20 Admission Dx/Problem (Free Text: Admission Diagnosis/Problem Admission Diagnosis/Problem Hip fracture requiring operative repair Functional Status: Reports: Pain Controlled, Tolerating Diet, Ambulating, Urinating, Incentive Spirometry. Denies: New Symptoms - Review of Systems General: Reports: No Symptoms. Denies: Fever, Weakness, Fatigue, Malaise, Chills HEENT: Reports: No Symptoms. Denies: Headaches, Sore Throat Pulmonary: Reports: No Symptoms. Denies: Shortness of Breath, Cough, Sputum, Wheezing Cardiovascular: Reports: No Symptoms. Denies: Chest Pain, Palpitations, Dyspnea on Exertion, Edema Gastrointestinal: Reports: No Symptoms. Denies: Abdominal Pain, Constipation, Diarrhea, Nausea, Vomiting Genitourinary: Reports: No Symptoms. Denies: Pain Musculoskeletal: Reports: Leg Pain (left ) Skin: Reports: No Symptoms. Denies: Cyanosis Neurological: Reports: No Symptoms. Denies: Confusion, Difficulty Walking, Weakness, Gait Disturbance Psychiatric: Reports: No Symptoms - Patient Data Vitals - Most Recent: Last Vital Signs Temp 98.4 F 10/12/20 12:37 Pulse 85 10/12/20 09:19 Resp 15 10/12/20 09:11 BP 126/69 10/12/20 09:19 Pulse Ox 97 10/12/20 12:00 Weight - Most Recent: 206 lb 8 oz I&O - Last 24 hours: Intake & Output 10/11/20 10/12/20 10/12/20 22:59 06:59 14:59 Intake Total 50 650 120 Output Total 475 200 Balance -425 450 120 Lab Results - Last 24 hrs: Laboratory Results - last 24 hr 10/12/20 10/12/20 Range/Units 04:26 04:26 WBC 14.51 H (4.23-9.07) K/mm3 RBC 4.42 L (4.63-6.08) M/mm3 Hgb 13.3 L (13.7-17.5) gm/dl Hct 42.2 (40.1-51.0) % MCV 95.5 H (79.0-92.2) fl MCH 30.1 (25.7-32.2) pg MCHC 31.5 L (32.2-35.5) g/dl RDW Std Deviation 47.1 H (35.1-43.9) fL Plt Count 144 L (163-337) K/mm3 MPV 11.3 (9.4-12.3) fl Neut % (Auto) 64.2 (34.0-67.9) % Lymph % (Auto) 13.0 L (21.8-53.1) % Tripp % (Auto) 18.1 H (5.3-12.2) % Eos % (Auto) 4.1 (0.8-7.0) Baso % (Auto) 0.3 (0.1-1.2) % Neut # (Auto) 9.31 H (1.78-5.38) K/mm3 Lymph # (Auto) 1.89 (1.32-3.57) K/mm3 Tripp # (Auto) 2.63 H (0.30-0.82) K/mm3 Eos # (Auto) 0.59 H (0.04-0.54) K/mm3 Baso # (Auto) 0.05 (0.01-0.08) K/mm3 Manual Slide Review Abnormal smear Sodium 137 (136-145) mEq/L Potassium 4.4 (3.5-5.1) mEq/L Chloride 101 (98-107) mEq/L Carbon Dioxide 27 (21-32) mEq/L Anion Gap 13.4 (5-15) BUN 27 H (7-18) mg/dL Creatinine 1.2 (0.7-1.3) mg/dL Est Cr Clr Drug Dosing 59.14 mL/min Estimated GFR (MDRD) 60 (>60) mL/min BUN/Creatinine Ratio 22.5 H (14-18) Glucose 107 (80-115) mg/dL Calcium 8.6 (8.5-10.1) mg/dL Magnesium 2.1 (1.8-2.4) mg/dl Total Bilirubin 0.8 (0.2-1.0) mg/dL AST 45 H (15-37) U/L ALT 25 (16-63) U/L Alkaline Phosphatase 53 (46-116) U/L Total Protein 6.7 (6.4-8.2) g/dl Albumin 2.9 L (3.4-5.0) g/dl Globulin 3.8 gm/dL Albumin/Globulin Ratio 0.8 L (1-2) Med Orders - Current: Current Medications Acetaminophen (Tylenol) 650 mg PO Q4H PRN PRN Reason: Pain (Mild 1-3)/fever Last Admin: 12/16/20 05:16 Dose: 650 mg Documented by: Acetaminophen (Tylenol) 650 mg PO BID [facility] Last Admin: 10/12/20 09:18 Dose: 650 mg Documented by: Apixaban (Eliquis) 2.5 mg PO BID [facility] Aspirin (Halfprin) 81 mg PO DAILY [facility] Last Admin: 10/12/20 09:18 Dose: 81 mg Documented by: Brimonidine Tartrate (Alphagan 0.2% Ophth Soln) 0 ml EYEBOTH BID [facility] Last Admin: 10/12/20 09:13 Dose: 1 drop Documented by: Cyclobenzaprine HCl (Flexeril) 10 mg PO TID PRN PRN Reason: Spasms Diltiazem HCl (Dilacor Xr) 240 mg PO DAILY [facility] Last Admin: 10/12/20 09:18 Dose: 240 mg Documented by: Docusate Sodium (Colace) 100 mg PO BID [facility] Last Admin: 10/12/20 09:18 Dose: 100 mg Documented by: Metoprolol Tartrate (Lopressor) 25 mg PO BID [facility] Last Admin: 10/12/20 09:19 Dose: 25 mg Documented by: Multivitamins (Thera) 1 each PO DAILY [facility] Last Admin: 10/12/20 09:19 Dose: 1 each Documented by: Ondansetron HCl (Zofran) 4 mg IV Q6H PRN PRN Reason: Nausea/Vomiting Oxycodone/Acetaminophen (Percocet 325-5 Mg) 1 tab PO Q4H PRN PRN Reason: Pain Last Admin: 10/12/20 09:17 Dose: 1 tab Documented by: Pantoprazole Sodium (Protonix) 40 mg PO TuThSa@0900 [facility] Last Admin: 10/11/20 08:28 Dose: 40 mg Documented by: Rosuvastatin Calcium (Crestor) 10 mg PO DAILY [facility] Last Admin: 10/12/20 09:18 Dose: 10 mg Documented by: Timolol Maleate (Timoptic 0.5% Ophth Soln) 0 ml EYEBOTH BID [facility] Last Admin: 10/12/20 09:13 Dose: 1 drop Documented by: Vitamin B Complex/Vitamin C (Super B With Vitamin C) 1 cap PO DAILY [facility] Last Admin: 10/12/20 09:18 Dose: 1 cap Documented by: Discontinued Medications Hydrocodone Bitart/Acetaminophen ([place] 325-5 Mg) 1 tab PO Q4H PRN PRN Reason: Pain (moderate 4-6) Last Admin: 10/11/20 01:24 Dose: 1 tab Documented by: Albuterol (Proventil Neb Soln) 2.5 mg NEB ONETIME ONE Stop: 10/11/20 11:01 Last Admin: 10/11/20 11:10 Dose: 2.5 mg Documented by: Brimonidine Tartrate (Brimonidine Tartrate 0.2% Ophth Soln) 0 ml EYEBOTH BID [facility] Last Admin: 10/09/20 22:47 Dose: Not Given Documented by: Bupivacaine HCl (Sensorcaine-Mpf 0.25%) Confirm Administered Dose 30 ml .ROUTE .STK-MED ONE Stop: 10/11/20 10:06 Last Admin: 10/11/20 12:49 Dose: 40 ml Documented by: Bupivacaine HCl (Sensorcaine-Mpf 0.25%) Confirm Administered Dose 10 ml .ROUTE .STK-MED ONE Stop: 10/11/20 13:02 Cefazolin Sodium (Ancef) Confirm Administered Dose 2 gm .ROUTE .STK-MED ONE Stop: 10/11/20 11:49 Clopidogrel Bisulfate (Plavix) 75 mg PO DAILY [facility] Last Admin: 10/12/20 09:18 Dose: 75 mg Documented by: Morphine Sulfate 8 mg/Epinephrine HCl 0.3 mg/Cefuroxime Sodium 750 mg/Ketorolac Tromethamine 30 mg/Sodium Chloride 7.9 ml 0 mg .XX ASDIRECTED PRN PRN Reason: Pain Stop: 10/11/20 14:00 Last Admin: 10/11/20 12:50 Dose: 788.3 mg Documented by: Cyclobenzaprine HCl (Flexeril) 10 mg PO TID PRN PRN Reason: Spasms Last Admin: 10/11/20 01:24 Dose: 10 mg Documented by: Docusate Sodium (Colace) 100 mg PO BID PRN PRN Reason: Constipation Enoxaparin Sodium (Lovenox) 40 mg SUBCUT DAILY [facility] Last Admin: 10/10/20 09:43 Dose: 40 mg Documented by: Enoxaparin Sodium (Lovenox) 40 mg SUBCUT DAILY [facility] Last Admin: 10/12/20 09:17 Dose: 40 mg Documented by: Ephedrine Sulfate (Ephedrine Sulfate) Confirm Administered Dose 50 mg .ROUTE .STK-MED ONE Stop: 10/11/20 12:03 Etomidate (Amidate) Confirm Administered Dose 40 mg IVPUSH .STK-MED ONE Stop: 10/11/20 11:14 Fentanyl (Sublimaze) Confirm Administered Dose 250 mcg .ROUTE .STK-MED ONE Stop: 10/11/20 11:14 Fentanyl (Sublimaze) 100 mcg IVPUSH ONETIME PRN PRN Reason: Pain Stop: 10/11/20 18:00 Last Admin: 10/11/20 13:53 Dose: 85 mcg Documented by: Hydromorphone HCl (Dilaudid) 0.25 mg IVPUSH ONETIME ONE Stop: 10/11/20 07:31 Last Admin: 10/11/20 07:21 Dose: 0.25 mg Documented by: Hydromorphone HCl (Dilaudid) 0.25 mg IVPUSH ONETIME ONE Stop: 10/11/20 09:18 Last Admin: 10/11/20 09:40 Dose: 0.25 mg Documented by: Hydromorphone HCl (Dilaudid) 0.5 mg IVPUSH Q30M PRN PRN Reason: Pain (severe 7-10) Stop: 10/11/20 18:00 Lidocaine HCl (Xylocaine-Mpf 1%) Confirm Administered Dose 4 mls @ as directed .ROUTE .STK-MED ONE Stop: 10/11/20 11:22 Lactated Ringer's (Ringers, Lactated) Confirm Administered Dose 1,000 mls @ as directed .ROUTE .STK-MED ONE Stop: 10/11/20 12:51 Cefazolin Sodium/Dextrose 2 gm (/ Premix) 50 mls @ 100 mls/hr IV Q8H RIKY Stop: 10/12/20 12:29 Last Admin: 10/12/20 11:10 Dose: 100 mls/hr Documented by: Midazolam HCl (Versed 1 Mg/Ml) Confirm Administered Dose 2 mg .ROUTE .STK-MED ONE Stop: 10/11/20 11:14 Ondansetron HCl (Zofran) Confirm Administered Dose 8 mg .ROUTE .STK-MED ONE Stop: 10/11/20 11:47 Potassium Chloride (Klor-Con M20) 40 meq PO ONETIME ONE Stop: 10/10/20 07:36 Last Admin: 10/10/20 09:44 Dose: 40 meq Documented by: Sodium Chloride (Saline Flush) 10 ml FLUSH ASDIRECTED PRN PRN Reason: Keep Vein Open Last Admin: 10/09/20 09:51 Dose: 10 ml Documented by: Tranexamic Acid (Cyklokapron) Confirm Administered Dose 1,000 mg .ROUTE .STK-MED ONE Stop: 10/11/20 10:06 Last Admin: 10/11/20 12:55 Dose: 1,000 mg Documented by: Vancomycin HCl (Vancomycin) Confirm Administered Dose 1 gm .ROUTE .STK-MED ONE Stop: 10/11/20 10:06 Last Admin: 10/11/20 12:55 Dose: 1 gm Documented by: - Exam Quality Assessment: Reports: DVT Prophylaxis. Denies: Supplemental Oxygen, Urine Catheter General: Reports: Alert, Oriented, Cooperative, No Acute Distress HEENT: Reports: Pupils Equal, Pupils Reactive, Mucous Membr. Moist/[place] Neck: Reports: Supple, Trachea Midline Lungs: Reports: Clear to Auscultation, Normal Respiratory Effort Cardiovascular: Reports: Regular Rate, Regular Rhythm GI/Abdominal Exam: Normal Bowel Sounds, Soft, Non-Tender, No Distention (Male) Exam: Deferred Rectal (Males) Exam: Deferred Back Exam: Reports: Normal Inspection, Full Range of Motion Extremities: Normal Capillary Refill, Arm Pain, Leg Pain (left), Limited Range of Motion, Other (Bandage in place on left leg. Cooling pack in place. ) Skin: Reports: Warm, Dry, Intact Wound/Incisions: Reports: Dressing Dry and Intact Neurological: Reports: No New Focal Deficit Psy/Mental Status: Reports: Alert, Normal Affect, Normal Mood
--- NOTE | 2020-10-12 15:51 | PCM.SURGPN ---
- General Info Date of Service: 10/12/20 POD#: 1 Functional Status: Reports: Pain Controlled, Tolerating Diet, Ambulating, Urinating, Incentive Spirometry - Patient Data Vitals - Most Recent: Last Vital Signs Temp 98.4 F 10/12/20 12:37 Pulse 85 10/12/20 09:19 Resp 15 10/12/20 09:11 BP 126/69 10/12/20 09:19 Pulse Ox 97 10/12/20 12:00 Weight - Most Recent: 206 lb 8 oz I&O - Last 24 Hours: Intake & Output 10/12/20 10/12/20 10/12/20 06:59 14:59 22:59 Intake Total 650 120 Output Total 200 Balance 450 120 Lab Results Last 24 Hrs: Laboratory Results - last 24 hr 10/12/20 10/12/20 10/12/20 Range/Units 04:26 04:26 11:55 WBC 14.51 H (4.23-9.07) K/mm3 RBC 4.42 L (4.63-6.08) M/mm3 Hgb 13.3 L (13.7-17.5) gm/dl Hct 42.2 (40.1-51.0) % MCV 95.5 H (79.0-92.2) fl MCH 30.1 (25.7-32.2) pg MCHC 31.5 L (32.2-35.5) g/dl RDW Std Deviation 47.1 H (35.1-43.9) fL Plt Count 144 L (163-337) K/mm3 MPV 11.3 (9.4-12.3) fl Neut % (Auto) 64.2 (34.0-67.9) % Lymph % (Auto) 13.0 L (21.8-53.1) % [place] % (Auto) 18.1 H (5.3-12.2) % Eos % (Auto) 4.1 (0.8-7.0) Baso % (Auto) 0.3 (0.1-1.2) % Neut # (Auto) 9.31 H (1.78-5.38) K/mm3 Lymph # (Auto) 1.89 (1.32-3.57) K/mm3 [place] # (Auto) 2.63 H (0.30-0.82) K/mm3 Eos # (Auto) 0.59 H (0.04-0.54) K/mm3 Baso # (Auto) 0.05 (0.01-0.08) K/mm3 Manual Slide Review Abnormal smear Sodium 137 (136-145) mEq/L Potassium 4.4 (3.5-5.1) mEq/L Chloride 101 (98-107) mEq/L Carbon Dioxide 27 (21-32) mEq/L Anion Gap 13.4 (5-15) BUN 27 H (7-18) mg/dL Creatinine 1.2 (0.7-1.3) mg/dL Est Cr Clr Drug Dosing 59.14 mL/min Estimated GFR (MDRD) 60 (>60) mL/min BUN/Creatinine Ratio 22.5 H (14-18) Glucose 107 (80-115) mg/dL Calcium 8.6 (8.5-10.1) mg/dL Magnesium 2.1 (1.8-2.4) mg/dl Total Bilirubin 0.8 (0.2-1.0) mg/dL AST 45 H (15-37) U/L ALT 25 (16-63) U/L Alkaline Phosphatase 53 (46-116) U/L Total Protein 6.7 (6.4-8.2) g/dl Albumin 2.9 L (3.4-5.0) g/dl Globulin 3.8 gm/dL Albumin/Globulin Ratio 0.8 L (1-2) Urine Color Yellow (Yellow) Urine Appearance Clear (Clear) Urine pH 6.0 (5.0-8.0) Ur Specific [place] 1.025 (1.005-1.030) Urine Protein 1+ H (Negative) Urine Glucose (UA) Negative (Negative) Urine Ketones Negative (Negative) Urine Occult Blood Negative (Negative) Urine Nitrite Negative (Negative) Urine Bilirubin Negative (Negative) Urine Urobilinogen 0.2 (0.2-1.0) Ur Leukocyte Esterase Negative (Negative) Urine RBC 0-5 (0-5) /hpf Urine WBC Not seen (0-5) /hpf Ur Squamous Epith Cells 0-5 (0-5) /hpf Urine Bacteria Rare (FEW) /hpf Urine Mucus Few (FEW) /hpf Med Orders - Current: Current Medications Acetaminophen (Tylenol) 650 mg PO Q4H PRN PRN Reason: Pain (Mild 1-3)/fever Last Admin: 10/12/20 05:16 Dose: 650 mg Documented by: Acetaminophen (Tylenol) 650 mg PO BID [facility] Last Admin: 10/12/20 09:18 Dose: 650 mg Documented by: Apixaban (Eliquis) 2.5 mg PO BID [facility] Aspirin (Halfprin) 81 mg PO DAILY [facility] Last Admin: 10/12/20 09:18 Dose: 81 mg Documented by: Brimonidine Tartrate (Alphagan 0.2% Ophth Soln) 0 ml EYEBOTH BID [facility] Last Admin: 10/12/20 09:13 Dose: 1 drop Documented by: Cyclobenzaprine HCl (Flexeril) 10 mg PO TID PRN PRN Reason: Spasms Diltiazem HCl (Dilacor Xr) 240 mg PO DAILY [facility] Last Admin: 10/12/20 09:18 Dose: 240 mg Documented by: Docusate Sodium (Colace) 100 mg PO BID [facility] Last Admin: 10/12/20 09:18 Dose: 100 mg Documented by: Metoprolol Tartrate (Lopressor) 25 mg PO BID [facility] Last Admin: 10/12/20 09:19 Dose: 25 mg Documented by: Multivitamins (Thera) 1 each PO DAILY [facility] Last Admin: 10/12/20 09:19 Dose: 1 each Documented by: Ondansetron HCl (Zofran) 4 mg IV Q6H PRN PRN Reason: Nausea/Vomiting Oxycodone/Acetaminophen (Percocet 325-5 Mg) 1 tab PO Q4H PRN PRN Reason: Pain Last Admin: 10/12/20 14:53 Dose: 1 tab Documented by: Pantoprazole Sodium (Protonix) 40 mg PO TuThSa@0900 [facility] Last Admin: 10/11/20 08:28 Dose: 40 mg Documented by: Rosuvastatin Calcium (Crestor) 10 mg PO DAILY [facility] Last Admin: 10/12/20 09:18 Dose: 10 mg Documented by: Timolol Maleate (Timoptic 0.5% Ophth Soln) 0 ml EYEBOTH BID [facility] Last Admin: 10/12/20 09:13 Dose: 1 drop Documented by: Vitamin B Complex/Vitamin C (Super B With Vitamin C) 1 cap PO DAILY [facility] Last Admin: 10/12/20 09:18 Dose: 1 cap Documented by: Discontinued Medications Hydrocodone Bitart/Acetaminophen ([place] 325-5 Mg) 1 tab PO Q4H PRN PRN Reason: Pain (moderate 4-6) Last Admin: 10/11/20 01:24 Dose: 1 tab Documented by: Albuterol (Proventil Neb Soln) 2.5 mg NEB ONETIME ONE Stop: 10/11/20 11:01 Last Admin: 10/11/20 11:10 Dose: 2.5 mg Documented by: Brimonidine Tartrate (Brimonidine Tartrate 0.2% Ophth Soln) 0 ml EYEBOTH BID [facility] Last Admin: 10/09/20 22:47 Dose: Not Given Documented by: Bupivacaine HCl (Sensorcaine-Mpf 0.25%) Confirm Administered Dose 30 ml .ROUTE .STK-MED ONE Stop: 10/11/20 10:06 Last Admin: 10/11/20 12:49 Dose: 40 ml Documented by: Bupivacaine HCl (Sensorcaine-Mpf 0.25%) Confirm Administered Dose 10 ml .ROUTE .STK-MED ONE Stop: 10/11/20 13:02 Cefazolin Sodium (Ancef) Confirm Administered Dose 2 gm .ROUTE .STK-MED ONE Stop: 10/11/20 11:49 Clopidogrel Bisulfate (Plavix) 75 mg PO DAILY [facility] Last Admin: 10/12/20 09:18 Dose: 75 mg Documented by: Morphine Sulfate 8 mg/Epinephrine HCl 0.3 mg/Cefuroxime Sodium 750 mg/Ketorolac Tromethamine 30 mg/Sodium Chloride 7.9 ml 0 mg .XX ASDIRECTED PRN PRN Reason: Pain Stop: 10/11/20 14:00 Last Admin: 10/11/20 12:50 Dose: 788.3 mg Documented by: Cyclobenzaprine HCl (Flexeril) 10 mg PO TID PRN PRN Reason: Spasms Last Admin: 10/11/20 01:24 Dose: 10 mg Documented by: Docusate Sodium (Colace) 100 mg PO BID PRN PRN Reason: Constipation Enoxaparin Sodium (Lovenox) 40 mg SUBCUT DAILY [facility] Last Admin: 10/10/20 09:43 Dose: 40 mg Documented by: Enoxaparin Sodium (Lovenox) 40 mg SUBCUT DAILY [facility] Last Admin: 10/12/20 09:17 Dose: 40 mg Documented by: Ephedrine Sulfate (Ephedrine Sulfate) Confirm Administered Dose 50 mg .ROUTE .STK-MED ONE Stop: 10/11/20 12:03 Etomidate (Amidate) Confirm Administered Dose 40 mg IVPUSH .STK-MED ONE Stop: 10/11/20 11:14 Fentanyl (Sublimaze) Confirm Administered Dose 250 mcg .ROUTE .STK-MED ONE Stop: 10/11/20 11:14 Fentanyl (Sublimaze) 100 mcg IVPUSH ONETIME PRN PRN Reason: Pain Stop: 10/11/20 18:00 Last Admin: 10/11/20 13:53 Dose: 85 mcg Documented by: Hydromorphone HCl (Dilaudid) 0.25 mg IVPUSH ONETIME ONE Stop: 10/11/20 07:31 Last Admin: 10/11/20 07:21 Dose: 0.25 mg Documented by: Hydromorphone HCl (Dilaudid) 0.25 mg IVPUSH ONETIME ONE Stop: 10/11/20 09:18 Last Admin: 10/11/20 09:40 Dose: 0.25 mg Documented by: Hydromorphone HCl (Dilaudid) 0.5 mg IVPUSH Q30M PRN PRN Reason: Pain (severe 7-10) Stop: 10/11/20 18:00 Lidocaine HCl (Xylocaine-Mpf 1%) Confirm Administered Dose 4 mls @ as directed .ROUTE .STK-MED ONE Stop: 10/11/20 11:22 Lactated Ringer's (Ringers, Lactated) Confirm Administered Dose 1,000 mls @ as directed .ROUTE .STK-MED ONE Stop: 10/11/20 12:51 Cefazolin Sodium/Dextrose 2 gm (/ Premix) 50 mls @ 100 mls/hr IV Q8H [facility] Stop: 10/12/20 12:29 Last Admin: 10/12/20 11:10 Dose: 100 mls/hr Documented by: Midazolam HCl (Versed 1 Mg/Ml) Confirm Administered Dose 2 mg .ROUTE .STK-MED ONE Stop: 10/11/20 11:14 Ondansetron HCl (Zofran) Confirm Administered Dose 8 mg .ROUTE .STK-MED ONE Stop: 10/11/20 11:47 Potassium Chloride (Klor-Con M20) 40 meq PO ONETIME ONE Stop: 10/10/20 07:36 Last Admin: 10/10/20 09:44 Dose: 40 meq Documented by: Sodium Chloride (Saline Flush) 10 ml FLUSH ASDIRECTED PRN PRN Reason: Keep Vein Open Last Admin: 10/09/20 09:51 Dose: 10 ml Documented by: Tranexamic Acid (Cyklokapron) Confirm Administered Dose 1,000 mg .ROUTE .STK-MED ONE Stop: 10/11/20 10:06 Last Admin: 10/11/20 12:55 Dose: 1,000 mg Documented by: Vancomycin HCl (Vancomycin) Confirm Administered Dose 1 gm .ROUTE .STK-MED ONE Stop: 10/11/20 10:06 Last Admin: 10/11/20 12:55 Dose: 1 gm Documented by: - Exam Wound/Incisions: Dressing Dry and Intact General: Alert, Cooperative, No Acute Distress Lungs: Normal Respiratory Effort Extremities: Other (NVS intact for LLE. Jennifer's negative.) Sepsis Event Note - Evaluation Sepsis Screening Result: No Definite Risk - Focused Exam Vital Signs: Vital Signs Temp Temp Pulse Resp BP Pulse Ox Pulse Ox 10/12/20 12:37 98.4 F 10/12/20 12:00 97 10/12/20 10:55 98.7 F 10/12/20 09:19 85 126/69 10/12/20 09:18 100.7 F H 10/12/20 09:11 100.8 F H 85 15 126/69 99 10/12/20 05:07 99.0 F 77 18 112/57 L 95 - Problem List Review Problem List Initiated/Reviewed/Updated: Yes - My Orders Last 24 Hours: Active Orders 24 hr Category Date Time Status Patient Status [ADT] Routine ADT 10/12/20 08:22 Active Activity as Tolerated [RC] .Routine Care 10/11/20 16:20 Active Ready for Discharge [RC] PER UNIT ROUTINE Care 10/12/20 12:54 Active Regular Diet [DIET] Diet 10/11/20 Dinner Active CBC WITH AUTO DIFF [HEME] AM Lab 10/13/20 05:11 Ordered CMP [COMPREHENSIVE METABOLIC PN,CMP] [CHEM] AM Lab 10/13/20 05:11 Ordered MAGNESIUM [CHEM] AM Lab 10/13/20 05:11 Ordered Acetaminophen [TylenoL] Med 10/11/20 21:00 Active 650 mg PO BID Apixaban [Eliquis] Med 10/13/20 09:00 Active 2.5 mg PO BID Aspirin [Halfprin] Med 10/12/20 09:00 Active 81 mg PO DAILY Vitamin B Complex with C [Super B With Vitamin C] Med 10/12/20 09:00 Active 1 cap PO DAILY Weight bearing status [OM.PC] Routine Oth 10/11/20 16:23 Ordered Medication Orders Acetaminophen (Tylenol) 650 mg PO Q4H PRN PRN Reason: Pain (Mild 1-3)/fever Last Admin: 10/12/20 05:16 Dose: 650 mg Documented by: Admin: 10/10/20 20:33 Dose: 650 mg Documented by: Admin: 10/09/20 16:46 Dose: 650 mg Documented by: TY Acetaminophen (Tylenol) 650 mg PO BID [facility] Last Admin: 10/12/20 09:18 Dose: 650 mg Documented by: Admin: 10/11/20 20:53 Dose: 650 mg Documented by: SILVERIO Apixaban (Eliquis) 2.5 mg PO BID [facility] Aspirin (Halfprin) 81 mg PO DAILY [facility] Last Admin: 10/12/20 09:18 Dose: 81 mg Documented by: NAYANA Brimonidine Tartrate (Alphagan 0.2% Ophth Soln) 0 ml EYEBOTH BID [facility] Last Admin: 10/12/20 09:13 Dose: 1 drop Documented by: Admin: 10/11/20 21:01 Dose: 1 drop Documented by: Admin: 10/11/20 08:28 Dose: 1 drop Documented by: Admin: 10/10/20 20:33 Dose: 1 drop Documented by: Admin: 10/10/20 09:45 Dose: 1 drop Documented by: NAYANA Cyclobenzaprine HCl (Flexeril) 10 mg PO TID PRN PRN Reason: Spasms Diltiazem HCl (Dilacor Xr) 240 mg PO DAILY [facility] Last Admin: 10/12/20 09:18 Dose: 240 mg Documented by: Admin: 10/11/20 08:29 Dose: 240 mg Documented by: Admin: 10/10/20 09:44 Dose: 240 mg Documented by: NAYANA Docusate Sodium (Colace) 100 mg PO BID [facility] Admin: 10/12/20 09:18 Dose: 100 mg Documented by: Admin: 10/11/20 20:52 Dose: 100 mg Documented by: Admin: 10/11/20 08:28 Dose: 100 mg Documented by: Admin: 10/10/20 20:34 Dose: 100 mg Documented by: Admin: 10/10/20 09:44 Dose: 100 mg Documented by: Admin: 10/09/20 21:00 Dose: 100 mg Documented by: SAMMI Metoprolol Tartrate (Lopressor) 25 mg PO BID [facility] Admin: 10/12/20 09:19 Dose: 25 mg Documented by: Admin: 10/11/20 20:52 Dose: 25 mg Documented by: Admin: 10/11/20 08:28 Dose: 25 mg Documented by: Admin: 10/10/20 20:34 Dose: 25 mg Documented by: Admin: 10/10/20 09:44 Dose: 25 mg Documented by: Admin: 10/09/20 21:00 Dose: 25 mg Documented by: SAMMI Multivitamins (Thera) 1 each PO DAILY [facility] Admin: 10/12/20 09:19 Dose: 1 each Documented by: Admin: 10/11/20 08:28 Dose: 1 each Documented by: Admin: 10/10/20 09:43 Dose: 1 each Documented by: NAYANA Ondansetron HCl (Zofran) 4 mg IV Q6H PRN PRN Reason: Nausea/Vomiting Oxycodone/Acetaminophen (Percocet 325-5 Mg) 1 tab PO Q4H PRN PRN Reason: Pain Last Admin: 10/12/20 14:53 Dose: 1 tab Documented by: Admin: 10/12/20 09:17 Dose: 1 tab Documented by: NAAYNA Pantoprazole Sodium (Protonix) 40 mg PO TuThSa@0900 [facility] Admin: 12/15/20 08:28 Dose: 40 mg Documented by: NAYANA Rosuvastatin Calcium (Crestor) 10 mg PO DAILY [facility] Last Admin: 10/12/20 09:18 Dose: 10 mg Documented by: Admin: 10/11/20 08:28 Dose: 10 mg Documented by: Admin: 10/10/20 09:43 Dose: 10 mg Documented by: NAYANA Timolol Maleate (Timoptic 0.5% Ophth Soln) 0 ml EYEBOTH BID [facility] Last Admin: 10/12/20 09:13 Dose: 1 drop Documented by: Admin: 10/11/20 20:48 Dose: 1 drop Documented by: Admin: 10/11/20 08:28 Dose: 1 drop Documented by: Admin: 10/10/20 20:31 Dose: 1 drop Documented by: Admin: 10/10/20 09:45 Dose: 1 drop Documented by: Admin: 10/09/20 20:59 Dose: 1 drop Documented by: SAMMI Vitamin B Complex/Vitamin C (Super B With Vitamin C) 1 cap PO DAILY [facility] Admin: 10/12/20 09:18 Dose: 1 cap Documented by: NAYANA - Assessment Assessment (Free Text/Narrative):: POD#1 - s/p left CARLY - Plan Plan (Free Text/Narrative):: 1. Hgb 13.3. 2. Discharge to home today. 3. Outpatient therapy. 4. CARLY precautions. 5. Eliquis PO BID. This was discussed with Hospitalist service. The pt was eval by Dr. Son today.
[2020-10-13] MEDS ORDERED: Apixaban 2.5 MG Tab PO SCH (09:00)
--- NOTE | 2020-10-31 07:22 | PCM.OPNOTE ---
- General Post-Op/Procedure Note Date of Surgery/Procedure: 10/11/20 Operative Procedure(s): left total hip arthroplasty Pre Op Diagnosis: left hip subcapital femoral neck fracgture Post-Op Diagnosis: Same Anesthesia Technique: Local, MAC, Spinal Primary Surgeon: Jayce Son Anesthesia Provider: Efrain Ladd Environmental Health Nurse: Charlee Lackey Environmental Health Nurse: Lu Joshua EBL in mLs: 200 Complications: None Condition: Good Free Text/Narrative:: 56 cup 9 stem 28+0 mdm
--- NOTE | 2020-10-31 07:54 | OR ---
DATE OF OPERATION: 10/11/2020 SURGEON: Jayce Son MD OPERATION PERFORMED: Left total hip arthroplasty. PREOPERATIVE DIAGNOSIS: Left hip subcapital femoral neck fracture. POSTOPERATIVE DIAGNOSIS: Left hip subcapital femoral neck fracture. ANESTHESIA: Local MAC with spinal. ANESTHESIA PROVIDER: Chuyita Samuel. ASSISTANTS: 1. Charlee Lackey PA-C. 2. Lu Joshua LP. ESTIMATED BLOOD LOSS: 200 mL. COMPLICATIONS: None. CONDITION: Stable. IMPLANTS: 1. Johann size 56 mm solid Tritanium II acetabular cup. 2. Johann size 9 Accolade II stem. 3. [place] size 28 +0 MDM components. DESCRIPTION OF PROCEDURE: The patient was identified in the preoperative holding area. Proper site was marked and identified by surgeon. The patient was taken back to the operating theater where after adequate anesthesia, the patient was placed in a right lateral decubitus position. Axillary roll was placed. Pegs were then placed and were well padded. The patient's gluteal fold was parallel to the floor. The left hip was then sterilely prepped and draped in the usual sterile fashion. OR time-out was performed. The patient received 2 g IV Ancef. Standard posterior incision was made down on the hip centered over the greater trochanter. This was taken down to the IT band and gluteal fascia which was incised along the incisional length. Charnley retractor was then placed. Short external rotators were identified. Takedown of the short external rotators was done from the level of the piriformis down to the lesser trochanter as well as capsulotomy. Femoral fracture was identified and an awl was used for removal of the femoral head fracture. A clean-up cut was done on the humeral neck and attention was turned to the acetabulum. Anterior and posterior acetabular retractors were placed and then circumferential removal of the labrum as well as the pulvinar was done at this time. Starting with a 52 reamer, I was able to ream up to a 56 which was found to have a good bony bleeding bed. A 56 mm Tritanium II acetabular cup was impacted into anatomic position for the patient and the MDM liner was impacted into place. Attention was turned to the humerus. Box chisel was used out laterally. Starter awl was placed down the canal. Starting with the 0 broach, I was able to broach up to a size 9 which was found to be rotationally and vertically stable. Trial implants with a 28 +0 MDM components were then done. The patient had adequate oriental orthodox of leg lengths and was stable throughout range of motion. The trial implants were then dislocated and removed. A size 9 Accolade II stem was impacted into place and the 28 +0 MDM components were constructed on the back table and then impacted on to the femoral stem. Hip was then relocated. #5 Ethibond suture was used for the closure of the short external rotators and capsule. 1 L of Irrisept irrigation was irrigated through the hip along with 1 L pulse lavage irrigation with Ancef. Topical tranexamic acid and vancomycin powder were applied and #2 barbed suture used for closure of the IT band and gluteal fascia. 2-0 Vicryl was used subcutaneously. Prineo was used for closure of the skin. The patient tolerated the procedure well and sent to PACU in stable condition. MMODAL /[id number]
== END 2020-10-12 15:28 | disposition home or self-care (01) | DRG 522 ==
LOC: JD.ED 08:14 → JD.MS 10:24
PROVIDERS: ADMIT Family Medicine; ATTEND Family Medicine
PROC: 0SRB0JZ Replacement of Left Hip Joint with Synthetic Substitute, Open Approach (ICD-10-PCS; principal; 2020-10-09)
DX: S72.002A Fracture of unspecified part of neck of left femur, initial encounter for closed fracture (principal); W19.XXXA Unspecified fall, initial encounter; S72.012A Unspecified intracapsular fracture of left femur, initial encounter for closed fracture; I10 Essential (primary) hypertension; E78.5 Hyperlipidemia, unspecified; K21.9 Gastro-esophageal reflux disease without esophagitis; H54.7 Unspecified visual loss; Z20.828 Contact with and (suspected) exposure to other viral communicable diseases; K59.00 Constipation, unspecified; E78.00 Pure hypercholesterolemia, unspecified; Z79.01 Long term (current) use of anticoagulants; Z86.711 Personal history of pulmonary embolism; Z86.718 Personal history of other venous thrombosis and embolism; Z79.82 Long term (current) use of aspirin; Z79.899 Other long term (current) drug therapy; Z87.891 Personal history of nicotine dependence; Z95.1 Presence of aortocoronary bypass graft; W00.0XXA Fall on same level due to ice and snow, initial encounter; Y92.22 Religious institution as the place of occurrence of the external cause
CPT/HCPCS: 36415; 73502; 80053; 84484; 85025; 85610; 85730; 86850; 86900; 86901; 93005; 99284; U0002; 01214; 71045; 71045-26; 73501-26-LT; 73501-LT; 81001; 83735; 85027; 87641; 93010; 94640; 97110-GP; 97116-GP; 97161-GP; 97165-GO; 97535-GO; 99221; 99232; 99239; A9270-GY; C1776; J0171; J0330; J0690; J0697; J1170; J1650; J1885; J2001; J2250; J2270; J2405; J3010; J3370; J3490; J7120

== ENCOUNTER 2020-10-14 16:39 | Emergency (ER) | payer MEDICARE, BC ==
--- NOTE | 2020-10-14 18:15 | EDM.PDOC ---
ED HPI GENERAL MEDICAL PROBLEM - General Chief Complaint: Genitourinary Problem Stated Complaint: BLOOD IN URINE Time Seen by Provider: 10/14/20 17:06 Source of Information: Reports: Patient, RN Notes Reviewed - History of Present Illness INITIAL COMMENTS - FREE TEXT/NARRATIVE: 70 yr old male just had L hip surgery 3 days ago. Went home 2 days ago. Is on eliquis. He saw a small amt fo blood in the toilet after voiding a short time ago. No pain, burning, fever, chills, back pain. Doing well with L hip. - Related Data Allergies Allergy/AdvReac Type Severity Reaction Status Date / Time codeine AdvReac Other Verified 10/09/20 11:29 Home Meds: Home Meds Multivitamin [One Daily Multivitamin] 1 tab PO DAILY 09/24/17 [History] Omeprazole 20 mg PO ASDIRECTED 09/24/17 [History] Vitamin B Complex Vit C No.4 [Super B Complex] 150 mg PO DAILY 09/24/17 [History] atorvaSTATin [Lipitor] 40 mg PO DAILY 09/24/17 [History] Diltiazem HCl [Diltiazem 24Hr Cd] 240 mg PO DAILY 10/16/17 [History] Metoprolol Tartrate 25 mg PO BID 10/16/17 [History] Acetaminophen [Tylenol Extra Strength] 500 mg PO BID 10/09/20 [History] Brimonidine Tartrate/Timolol [Combigan 0.2%-0.5% Eye Drops] 1 drop OP BID 10/09/20 [History] Acetaminophen/oxyCODONE [Percocet 325-5 MG] 1 tab PO Q4H PRN #20 tablet 10/12/20 [Rx] Apixaban [Eliquis] 2.5 mg PO BID 35 Days #70 tablet 10/12/20 [Rx] Docusate Sodium [Colace] 100 mg PO DAILY #20 cap 10/12/20 [Rx] Past Medical History HEENT History: Reports: Impaired Vision Other HEENT History: wear glasses Cardiovascular History: Reports: Blood Clots/VTE/DVT, Bypass, High Cholesterol, Hypertension Respiratory History: Reports: PE, Other (See Below) Other Respiratory History: DVT in leg that traveled to lungs. Gastrointestinal History: Reports: GERD, Other (See Below) Other Gastrointestinal History: hernia surgery x2 Musculoskeletal History: Reports: None Neurological History: Reports: None Endocrine/Metabolic History: Reports: None - Infectious Disease History Infectious Disease History: Reports: Chicken Pox, Measles - Past Surgical History HEENT Surgical History: Reports: None Cardiovascular Surgical History: Reports: Coronary Artery Bypass GI Surgical History: Reports: Hernia, Inguinal Musculoskeletal Surgical History: Reports: Hip Replacement Other Musculoskeletal Surgeries/Procedures:: left Social & Family History - Family History Family Medical History: No Pertinent Family History - Tobacco Use Tobacco Use Status *Q: Never Tobacco User - Caffeine Use Caffeine Use: Reports: Coffee, Soda - Recreational Drug Use Recreational Drug Use: No ED ROS GENERAL - Review of Systems Review Of Systems: See Below Constitutional: Denies: Fever, Chills HEENT: Reports: No Symptoms Respiratory: Denies: Shortness of Breath Cardiovascular: Denies: Chest Pain GI/Abdominal: Denies: Abdominal Pain, Nausea, Vomiting : Reports: Hematuria Musculoskeletal: Reports: Joint Pain (L hip) Skin: Reports: No Symptoms Neurological: Reports: No Symptoms ED EXAM, GENERAL - Physical Exam Exam: See Below General Appearance: Alert, No Apparent Distress Head: Atraumatic Neck: Supple Respiratory/Chest: No Respiratory Distress, Lungs Clear, Normal Breath Sounds Cardiovascular: Regular Rate, Rhythm Back Exam: No: CVA Tenderness (L), CVA Tenderness (R), Paraspinal Tenderness Extremities: No: Pedal Edema, Leg Pain, Increased Warmth, Redness Skin Exam: Warm, Dry, Normal Color Course - Vital Signs Last Recorded V/S: Last Vital Signs Temp 99.1 F 10/14/20 17:11 Pulse 87 10/14/20 17:11 Resp 20 10/14/20 17:11 BP 156/82 H 10/14/20 17:11 Pulse Ox 96 10/14/20 17:11 - Orders/Labs/Meds Labs: Laboratory Tests 10/14/20 Range/Units 17:43 Urine Color Yellow (Yellow) Urine Appearance Clear (Clear) Urine pH 6.0 (5.0-8.0) Ur Specific [place] 1.020 (1.005-1.030) Urine Protein 1+ H (Negative) Urine Glucose (UA) Negative (Negative) Urine Ketones Negative (Negative) Urine Occult Blood 1+ H (Negative) Urine Nitrite Negative (Negative) Urine Bilirubin Negative (Negative) Urine Urobilinogen 1.0 (0.2-1.0) Ur Leukocyte Esterase Negative (Negative) Urine RBC 5-10 H (0-5) /hpf Urine WBC 0-5 (0-5) /hpf Ur Squamous Epith Cells 0-5 (0-5) /hpf Urine Bacteria Few (FEW) /hpf Urine Mucus Few (FEW) /hpf - Re-Assessments/Exams Free Text/Narrative Re-Assessment/Exam: 10/14/20 18:21 Ua shows 1 plus microscopic hematuria, no gross hematuria at time of ED visit. No UTI. Discharge instr. as documented. Departure - Departure Time of Disposition: 18:13 Disposition: Home, Self-Care 01 Condition: Fair Clinical Impression: Hematuria Qualifiers: Hematuria type: benign essential microscopic Qualified Code(s): R31.1 - Benign essential microscopic hematuria - Discharge Information Instructions: Hematuria, Adult Referrals: Ezequiel Mccauley MD [Primary Care Provider] - Forms: ED Department Discharge Additional Instructions: If you see more gross blood in the toilet than skip the next dose of your eliquis blood thinner. Drink plenty of water to maintain hydration. See Dr Hayward Saturday as planned. Return to ED as needed. Sepsis Event Note (ED) - Evaluation Sepsis Screening Result: No Definite Risk - Focused Exam Vital Signs: Vital Signs Temp Pulse Resp BP Pulse Ox 10/14/20 17:11 99.1 F 87 20 156/82 H 96
== END 2020-10-14 18:20 | disposition home or self-care (01) ==
LOC: JD.ED 16:39
DX: R31.1 Benign essential microscopic hematuria (principal); E78.00 Pure hypercholesterolemia, unspecified; I10 Essential (primary) hypertension; Z86.718 Personal history of other venous thrombosis and embolism; Z88.5 Allergy status to narcotic agent; Z79.899 Other long term (current) drug therapy; Z79.01 Long term (current) use of anticoagulants
CPT/HCPCS: 81001; 99282; 99283

== ENCOUNTER 2022-11-20 07:02 | Day surgery (SDC) | payer MEDICARE, BC ==
[~2022-11-20 07:02] MED LIST: Lactated Ringers 1,000 ML IV SCH; Lidocaine 1% 2 ML ONE; Lidocaine 1%/Sod Bicarbonate in NS 8.4% 1 ML Syringe IDERM PRN; Midazolam 1 MG/ML 2 ML SDV ONE; Propofol 200 MG/20 ML SDV ONE; Sodium Chloride 0.9% 10 ML Syringe FLUSH PRN; Sodium Chloride 0.9% 10 ML Syringe FLUSH SCH; fentaNYL 100 MCG/2 ML SDV ONE
== END 2022-11-20 08:52 | disposition home or self-care (01) ==
LOC: JD.SDS 07:02
PROVIDERS: ATTEND Surgery
DX: Z12.11 Encounter for screening for malignant neoplasm of colon (principal); D12.2 Benign neoplasm of ascending colon; D12.3 Benign neoplasm of transverse colon; K64.8 Other hemorrhoids; E03.9 Hypothyroidism, unspecified; D62 Acute posthemorrhagic anemia; I25.10 Atherosclerotic heart disease of native coronary artery without angina pectoris; J44.9 Chronic obstructive pulmonary disease, unspecified; I10 Essential (primary) hypertension; E78.00 Pure hypercholesterolemia, unspecified; M19.90 Unspecified osteoarthritis, unspecified site; K21.9 Gastro-esophageal reflux disease without esophagitis; Z88.5 Allergy status to narcotic agent; Z79.899 Other long term (current) drug therapy; Z87.891 Personal history of nicotine dependence; Z95.1 Presence of aortocoronary bypass graft; Z98.890 Other specified postprocedural states
CPT/HCPCS: 45380; 45385; J2250; J2704; J3010; J7120; J3490